=== PATIENT | male | born 1955 | race Hispanic/Latino ===

== ENCOUNTER 2017-09-02 08:59 | Emergency (ER) | payer MEDICARE ==
[2017-09-02 09:55] VITALS: BP 162/84
--- NOTE | 2017-09-02 10:15 | XRay Report ---
LEFT FOOT, 2 views: History: Pain, swelling, injury The bony architecture is intact. Bony alignment is normal. No soft tissue abnormalities are seen. The joint spaces appear preserved. IMPRESSION: Unremarkable left foot.
[2017-09-02] MEDS ORDERED: MOTRIN PO ONE (12:03)
--- NOTE | 2017-09-02 12:07 | Emergency Department Report ---
ED Lower Extremity HPI - General Chief Complaint: Extremity Injury, Lower Stated Complaint: LEFT FOOT PAIN Time Seen by Provider: 09/02/17 11:45 Source: patient Mode of arrival: Ambulatory Limitations: No Limitations - History of Present Illness Initial Comments: This is a 61-year-old male nontoxic, well nourished in appearance, no acute signs of distress presents to the ED with c/o of left foot pain x2 weeks. Patient stated he is unaware if he injured it but stated patient is aching with level of 8/10. Patient stated pain is intermittent. Patient stated he has been walking a lot. Patient denies any numbness, calf pain, calf tenderness, tingling, fever, chills, headache, nausea, vomiting, chest pain, shortness of breathe, decreased ROM, joint redness or joint swelling. Patient denies any drug allergies. PMH includes HTN. MD Complaint: foot injury -: Gradual, week(s) (2) Injury: Foot: Left Severity: mild Severity scale (0 -10): 8 Improves With: nothing Worsens With: nothing Associated Symptoms: able to partially bear weight, ambulatory. denies: snap/ pop sensation, swelling, numbness, tingling, unable to bear weight - Related Data Previous Rx's Medication Instructions Recorded Last Taken Type Aspirin EC [Aspirin Enteric Coated 81 mg PO QDAY #30 tablet 12/30/14 Unknown Rx TAB] Metoprolol [Lopressor TAB] 12.5 mg PO BID #60 tablet 12/30/14 Unknown Rx Minoxidil [Loniten] 2.5 mg PO BID #60 tablet 12/30/14 Unknown Rx NIFEdipine XL [Procardia Xl] 60 mg PO Q12HR #60 tablet 12/30/14 Unknown Rx Pantoprazole [Protonix TAB] 40 mg PO QDAY #30 tablet 12/30/14 Unknown Rx Sevelamer Carbonate [Renvela] 800 mg PO AC #90 tablet 12/30/14 Unknown Rx Amoxicillin/K Clav Tab [Augmentin 1 each PO DAILY #14 tablet 05/25/16 Unknown Rx 500 MG TAB] Ibuprofen [Motrin] 600 mg PO Q8H PRN #30 tablet 09/02/17 Unknown Rx predniSONE [Deltasone] 40 mg PO QDAY #5 tab 09/02/17 Unknown Rx Allergies Allergy/AdvReac Type Severity Reaction Status Date / Time adhesive Allergy Itching Verified 12/24/14 17:00 ED Review of Systems ROS: Stated complaint: LEFT FOOT PAIN Other details as noted in HPI Constitutional: denies: chills, fever Eyes: denies: eye pain, eye discharge, vision change ENT: denies: ear pain, throat pain Respiratory: denies: cough, shortness of breath, wheezing Cardiovascular: denies: chest pain, palpitations Endocrine: no symptoms reported Gastrointestinal: denies: abdominal pain, nausea, diarrhea Genitourinary: denies: urgency, dysuria Musculoskeletal: denies: back pain, joint swelling, arthralgia Skin: denies: rash, lesions Neurological: denies: headache, weakness, paresthesias Psychiatric: denies: anxiety, depression Hematological/Lymphatic: denies: easy bleeding, easy bruising ED Past Medical Hx - Past Medical History Hx Hypertension: Yes Hx Congestive Heart Failure: No Hx Diabetes: No Hx Renal Disease: Yes Hx Asthma: No Hx COPD: No Additional medical history: aorta clot - Surgical History Hx Pacemaker: No Additional Surgical History: fistula, aorta stent - Social History Smoking Status: Current Some Day Smoker Substance Use Type: None - Medications Home Medications: Home Medications Medication Instructions Recorded Confirmed Last Taken Type Aspirin EC [Aspirin Enteric Coated 81 mg PO QDAY #30 tablet 12/30/14 05/22/16 Unknown Rx TAB] Metoprolol [Lopressor TAB] 12.5 mg PO BID #60 tablet 12/30/14 05/22/16 Unknown Rx Minoxidil [Loniten] 2.5 mg PO BID #60 tablet 12/30/14 05/22/16 Unknown Rx NIFEdipine XL [Procardia Xl] 60 mg PO Q12HR #60 tablet 12/30/14 05/22/16 Unknown Rx Pantoprazole [Protonix TAB] 40 mg PO QDAY #30 tablet 12/30/14 05/22/16 Unknown Rx Sevelamer Carbonate [Renvela] 800 mg PO AC #90 tablet 12/30/14 05/22/16 Unknown Rx Amoxicillin/K Clav Tab [Augmentin 1 each PO DAILY #14 tablet 05/25/16 Unknown Rx 500 MG TAB] Ibuprofen [Motrin] 600 mg PO Q8H PRN #30 tablet 09/02/17 Unknown Rx predniSONE [Deltasone] 40 mg PO QDAY #5 tab 09/02/17 Unknown Rx ED Physical Exam - General Limitations: No Limitations General appearance: alert, in no apparent distress - Head Head exam: Present: atraumatic, normocephalic - Eye Eye exam: Present: normal appearance, PERRL, EOMI Pupils: Present: normal accommodation - ENT ENT exam: Present: normal exam, normal orophraynx, mucous membranes moist, TM's normal bilaterally, normal external ear exam - Neck Neck exam: Present: normal inspection, full ROM. Absent: tenderness, meningismus, lymphadenopathy, thyromegaly - Respiratory Respiratory exam: Present: normal lung sounds bilaterally. Absent: respiratory distress, wheezes, rales, rhonchi, stridor, chest wall tenderness, accessory muscle use, decreased breath sounds, prolonged expiratory - Cardiovascular Cardiovascular Exam: Present: regular rate, normal rhythm, normal heart sounds. Absent: bradycardia, tachycardia, irregular rhythm, systolic murmur, diastolic murmur, rubs, gallop - GI/Abdominal GI/Abdominal exam: Present: soft, normal bowel sounds. Absent: distended, tenderness, guarding, rebound, rigid, diminished bowel sounds - Rectal Rectal exam: Present: deferred - Extremities Exam Extremities exam: Present: normal inspection, full ROM, tenderness (posterior heel region), normal capillary refill. Absent: pedal edema, joint swelling, calf tenderness - Expanded Lower Extremity Exam Left Hip exam: Present: normal inspection, full ROM Upper Leg exam: Present: normal inspection, full ROM Knee exam: Present: normal inspection, full ROM Lower Leg exam: Present: normal inspection, full ROM. Absent: tenderness, swelling, abrasion, laceration, ecchymosis, deformity, crepidus, dislocation, erythema, palpable cord, Nikko's sign Ankle exam: Present: normal inspection, full ROM. Absent: tenderness, swelling , abrasion, laceration, ecchymosis, deformity, crepidus, dislocation, erythema, anterior draw sign Foot/Toe exam: Present: normal inspection, full ROM, tenderness, ecchymosis ( heel region). Absent: swelling, abrasion, laceration, deformity, crepidus, dislocation, erythema, amputation, puncture wound, foreign body, calcaneal tenderness, tenderness at base of 5th metatarsal, nail avulsion, subungual hematoma Neuro vascular tendon exam: Present: no vascular compromise. Absent: pulse deficit, abnormal cap refill, motor deficit, sensory deficit, tendon deficit, extremity cold to touch, pallor, abnormal 2-point discrimination, decreased fine /light touch, foot drop, peroneal nerve deficit, significant pain with passive ROM of distal joint Gait: Positive: observed and normal 1 - tenderness - Back Exam Back exam: Present: normal inspection, full ROM. Absent: tenderness, CVA tenderness (R), CVA tenderness (L), muscle spasm, paraspinal tenderness, vertebral tenderness, rash noted - Neurological Exam Neurological exam: Present: alert, oriented X3, CN II-XII intact, normal gait, reflexes normal - Psychiatric Psychiatric exam: Present: normal affect, normal mood - Skin Skin exam: Present: warm, dry, intact, normal color. Absent: rash ED Course Vital Signs 09/02/17 09:42 Temperature 97.8 F Pulse Rate 72 Respiratory 20 Rate Blood Pressure 162/84 O2 Sat by Pulse 98 Oximetry - Reevaluation(s) Reevaluation #1: 09/02/17 12:10 Patient is speaking in full sentences with no signs of distress noted. ED Lower Extremity MDM - Medical Decision Making This is a 61-year-old male that presents with plantar fasciitis. Patient is stable and was examined by me. X-ray of left foot has been obtained and dictated by radiologist but normal exam. Upon palpation there is tenderness to the plantar fasciitis region. No joint redness or joint swelling. No signs of any cellulitis noted. Not warm to touch. Patient received Motrin in the ED with persistent symptoms is improving and pain is subsiding. Patient received Solu-Medrol. Patient be discharged with prednisone and Motrin. Patient received orthopedic shoe. Patient was instructed Follow-up with a primary care doctor in 3-5 days or if symptoms worsen and continue return to emergency room as soon as possible. At time time of discharge, the patient does not seem toxic or ill in appearance. No acute signs of distress noted. Patient agrees to discharge treatment plan of care. No further questions noted by the patient. Critical care attestation.: If time is entered above; I have spent that time in minutes in the direct care of this critically ill patient, excluding procedure time. ED Disposition Clinical Impression: Plantar fasciitis Disposition: DC-01 TO HOME OR SELFCARE Is pt being admited?: No Does the pt Need Aspirin: No Condition: Stable Instructions: Plantar Fasciitis (ED), Prednisone (By mouth), Ibuprofen (By mouth) Additional Instructions: Follow-up with a primary care doctor/orthopedic doctor in 3-5 days or if symptoms worsen and continue return to emergency room as soon as possible. Prescriptions: Ibuprofen [Motrin] 600 mg PO Q8H PRN #30 tablet PRN Reason: Pain predniSONE [Deltasone] 40 mg PO QDAY #5 tab Referrals: PRIMARY CAREMD [Primary Care Provider] - 3-5 Days SERA MOTTA MD [Staff Physician] - 3-5 Days DUGLAS ALVAREZ MD [Staff Physician] - 3-5 Days [facility] [Outside] - 3-5 Days
== END 2017-09-02 12:50 | disposition home or self-care (01) ==
LOC: ED 08:59
DX: M72.2 Plantar fascial fibromatosis (principal); I10 Essential (primary) hypertension; Z88.8 Allergy status to other drugs, medicaments and biological substances
CPT/HCPCS: 73620; 96372; 99283; J2930

== ENCOUNTER 2019-01-19 15:36 | Inpatient (IN) | payer MEDICARE ==
[2019-01-19 16:30] LABS: Basophils % (Auto) 0.2 % (0.0-1.8); Eosinophils # (Auto) 0.2 K/mm3 (0.0-0.4); Eosinophils % (Auto) 1.6 % (0.0-4.3); Hematocrit 32.3 % (35.5-45.6); Hemoglobin 10.7 gm/dl (11.8-15.2); Lymphocytes # (Auto) 0.9 K/mm3 (1.2-5.4); Lymphocytes % (Auto) 7.9 % (13.4-35.0); Mean Corpuscular HGB Conc 33 % (32-34); Mean Corpuscular Volume 94 fl (84-94); Monocytes # (Auto) 0.8 K/mm3 (0.0-0.8); Platelet Count 202 K/mm3 (140-440); Red Blood Count 3.42 M/mm3 (3.65-5.03); Red Cell Distribution Width 16.1 % (13.2-15.2)
[2019-01-19] MEDS ORDERED: ATROVENT IH ONE (16:32)
[2019-01-19] MEDS ORDERED: PROVENTIL IH ONE (16:32)
--- NOTE | 2019-01-19 16:38 | Emergency Department Report ---
HPI - General Chief Complaint: Dyspnea/Respdistress Time Seen by Provider: 01/19/19 16:25 - HPI HPI: Room 21 The patient is a 63-year-old male presenting with a chief complaint shortness of breath. The patient has a history of end-stage renal disease and was last dialyzed 4 days ago 01/15/2019. She states she was unable to make it to dialysis yesterday because his car would not start. Patient states he developed shortness of breath last night as well as a cough that has been nonproductive. Patient denies history of fever or chest pain. Location: Lungs Duration: Since yesterday Quality: Shortness of Breath Severity: Moderate Modifying factors: [see above] Context: [see above] Mode of transportation: [not driving] ED Past Medical Hx - Past Medical History Previous Medical History?: Yes Hx Hypertension: Yes Hx Renal Disease: Yes Additional medical history: Dialysis M/W/F, aorta clot - Surgical History Past Surgical History?: Yes Additional Surgical History: fistula, aorta stent - Family History Family history: no significant - Social History Smoking Status: Current Some Day Smoker Substance Use Type: Marijuana - Medications Home Medications: Home Medications Medication Instructions Recorded Confirmed Last Taken Type Aspirin EC [Aspirin Enteric Coated 81 mg PO QDAY #30 tablet 12/30/14 05/22/16 Unknown Rx TAB] Metoprolol [Lopressor TAB] 12.5 mg PO BID #60 tablet 12/30/14 05/22/16 Unknown Rx Minoxidil [Loniten] 2.5 mg PO BID #60 tablet 12/30/14 05/22/16 Unknown Rx NIFEdipine XL [Procardia Xl] 60 mg PO Q12HR #60 tablet 12/30/14 05/22/16 Unknown Rx Pantoprazole [Protonix TAB] 40 mg PO QDAY #30 tablet 12/30/14 05/22/16 Unknown Rx Sevelamer Carbonate [Renvela] 800 mg PO AC #90 tablet 12/30/14 05/22/16 Unknown Rx Amoxicillin/K Clav Tab [Augmentin 1 each PO DAILY #14 tablet 05/25/16 Unknown Rx 500 MG TAB] Ibuprofen [Motrin] 600 mg PO Q8H PRN #30 tablet 09/02/17 Unknown Rx predniSONE [Deltasone] 40 mg PO QDAY #5 tab 09/02/17 Unknown Rx ED Review of Systems ROS: Stated complaint: SOB/NEEDS DIALYSIS Other details as noted in HPI Constitutional: denies: fever Eyes: denies: eye pain ENT: denies: throat pain Respiratory: cough, shortness of breath Cardiovascular: denies: chest pain Endocrine: no symptoms reported Gastrointestinal: denies: abdominal pain Genitourinary: denies: testicular pain Musculoskeletal: denies: back pain Neurological: denies: headache Physical Exam - Physical Exam Vital Signs: Vital Signs 01/19/19 01/19/19 15:50 15:51 Temperature 98.5 F Pulse Rate 92 H Respiratory 19 Rate Blood Pressure 186/96 Physical Exam: GENERAL: The patient is well-developed well-nourished male lying on stretcher appearing to be in mild discomfort. On the wheezing HEENT: Normocephalic. Atraumatic. Extraocular motions are intact. Patient has moist mucous membranes. NECK: Supple. Trachea midline CHEST/LUNGS: Diffuse wheezing. HEART/CARDIOVASCULAR: Regular. There is no tachycardia. There is no gallop rub or murmur. ABDOMEN: Abdomen is soft, nontender. Patient has normal bowel sounds. There is no abdominal distention. SKIN: There is no rash. There is no diaphoresis. NEURO: The patient is awake, alert, and oriented. The patient is cooperative. The patient has normal speech MUSCULOSKELETAL: There is no evidence of acute injury. ED Course Vital Signs 01/19/19 01/19/19 15:50 15:51 Temperature 98.5 F Pulse Rate 92 H Respiratory 19 Rate Blood Pressure 186/96 - Consultations Consultation #1: 01/19/19 16:35 Nephrology paged 01/19/19 16:[address] Montoya-will arrange for hemodialysis ED Medical Decision Making - Lab Data Result diagrams: 01/19/19 16:21 01/19/19 16:21 Laboratory Tests 01/19/19 01/19/19 16:21 16:21 WBC 11.0 RBC 3.42 L Hgb 10.7 L Hct 32.3 L MCV 94 MCH 31 MCHC 33 RDW 16.1 H Plt Count 202 Lymph % (Auto) 7.9 L [place] % (Auto) 7.0 Eos % (Auto) 1.6 Baso % (Auto) 0.2 Lymph # 0.9 L [place] # 0.8 Eos # 0.2 Baso # 0.0 Seg Neutrophils % 83.3 H Seg Neutrophils # 9.1 H Sodium 137 Potassium 6.0 H Chloride 96.4 L Carbon Dioxide 20 L Anion Gap 27 BUN 107 H Creatinine 14.3 H Estimated GFR 4 BUN/Creatinine Ratio 7 Glucose 108 H Calcium 9.9 Troponin T 0.056 H - EKG Data -: EKG Interpreted by Me EKG shows normal: sinus rhythm Rate: normal - EKG Data When compared to previous EKG there are: previous EKG unavailable Interpretation: nonspecific ST-T wave armando (T-wave inversion in lead aVL, V2) - Radiology Data Radiology results: image reviewed (chest x-ray) interpreted by me: Chest r-tac-suubhg overload. No pneumothorax - Differential Diagnosis volume overload, pneumonia, pneumothorax, reactive airway disease Critical care attestation.: If time is entered above; I have spent that time in minutes in the direct care of this critically ill patient, excluding procedure time. ED Disposition Clinical Impression: Shortness of breath, End-stage renal disease needing dialysis, Hyperkalemia Disposition: OP ADMIT IP TO THIS HOSP Is pt being admited?: Yes Does the pt Need Aspirin: Yes Condition: Fair Time of Disposition: 16:43 (hospitalist notified (Dr Dalal))
[2019-01-19 16:58] LABS: Calcium 9.9 mg/dL (8.4-10.2)
[2019-01-19 17:31] LABS: Chol/HDL Ratio 2.53 %
--- NOTE | 2019-01-19 17:34 | XRay Report ---
PROCEDURE: XR CHEST 1V AP TECHNIQUE: Chest radiograph , single frontal view. HISTORY: Chest Pain COMPARISONS: CXR 09/01/2018 . FINDINGS: Heart: Normal. Mediastinum/Vessels: There is increased prominence of both hilar regions and the pulmonary vasculatur e. Findings suggest vascular congestion and CHF. This should be followed to resolution.. Lungs/Pleural space: Focal infiltrate in the right lung base and left apex is seen which may be foca l pulmonary edema versus pneumonia. There is also likely fluid traversing the minor fissure on the ri ght.. Bony thorax: No acute osseous abnormality. Life support devices: None. IMPRESSION: Increased Pulmonary hilar vasculature prominence suggesting CHF. Patchy areas of infiltra te in the right lung base and left apex may be focal pulmonary edema versus pneumonia This document is electronically signed by Manasa Liang MD., Jan 19 2019 05:32:50 PM ET
[2019-01-19] MEDS ORDERED: NACL 0.9% 100 ML IV PRN ×2 (18:01→19:08)
[2019-01-19] MEDS ORDERED: CALCIUM GLUCONATE 1,000 MG in NACL 0.9% 100 ML IV ONE (18:29)
[2019-01-19 19:58] LABS: Hepatitis C Virus Antibody Reactive (NonReactive)
[2019-01-19] MEDS ORDERED: IBUPROFEN PO PRN (21:13)
[2019-01-19] MEDS ORDERED: LONITEN PO SCH (22:00)
[2019-01-19] MEDS: NORVASC PO SCH (23:11)
[2019-01-19] MEDS: HALFPRIN EC PO SCH (23:12)
[2019-01-19] MEDS: PROTONIX PO SCH (23:12)
[2019-01-19] MEDS: LOPRESSOR PO SCH (23:12)
[2019-01-19] MEDS: RENVELA PO SCH (23:26)
[2019-01-20] MEDS ORDERED: PROVENTIL IH PRN (03:04)
[2019-01-20] MEDS: APRESOLINE IV PRN ×2 (05:56→17:36)
--- NOTE | 2019-01-20 06:12 | Event Note ---
Date: 01/19/19 See H/p in reports Volume overload ESRD on HD Missed HD
--- NOTE | 2019-01-20 06:43 | History and Physical Report ---
CHIEF COMPLAINT: Increasing shortness of breath. HISTORY OF PRESENT ILLNESS: A 63-year-old male with history of end-stage renal disease, on hemodialysis, missed hemodialysis for 2 sessions. The patient's last dialysis was 01/15/2019. Unable to make to dialysis because this would not start. Shortness of breath since last night as well as cough, which is nonproductive. Shortness of breath on minimal exertion. Orthopnea present. PAST MEDICAL HISTORY: Significant for hypertension, end-stage renal disease, dialysis on Friday, Friday, and Friday; aortic clot. PAST SURGICAL HISTORY: AV fistula and aortic stent. FAMILY HISTORY: Hypertension. SOCIAL HISTORY: Smokes half a pack a day. CURRENT MEDICATIONS: Amlodipine 10 mg twice a day, metoprolol 12.5 twice a day. Also, Renvela 800 mg once a day, prednisone was used in 2017, not anymore. REVIEW OF SYSTEMS: Significant for increasing shortness of breath and orthopnea, missed hemodialysis. PHYSICAL EXAMINATION: GENERAL: Young elderly male, cooperative during examination. VITAL SIGNS: Blood pressure 186/96, temperature 98.5, pulse 92, respirations 19. HEENT: Unremarkable. Pupils equal and reactive. NECK: Supple, no lymphadenopathy, no thyromegaly. LUNGS: Clear to auscultation and percussion. Good air entry. CARDIOVASCULAR: S1, S2 heard. No gallop, no murmur, no rub. Apical impulse in left fifth intercostal space and midclavicular line. ABDOMEN: Soft and benign. No hepatosplenomegaly. No guarding, no rigidity. Hernial orifices are normal. EXTREMITIES: Good pedal pulses. No pedal edema. CENTRAL NERVOUS SYSTEM: Alert and oriented x 4, nonfocal exam. SKIN: Normal. LABORATORY DATA: White count 11,000, hemoglobin is 10.7, hematocrit is 32.3, platelet count is 202,000. Sodium is 137, potassium is 6.0, BUN and creatinine is 107 and 14.3. Troponin is 0.051, hepatitis is reactive. Chest x-ray shows increased pulmonary hilar vasculature prominence suggesting CHF, patchy areas of infiltrate in the right lung base and left apex may be focal pulmonary edema versus pneumonia. EKG, sinus tachycardia, heart rate of 100. ASSESSMENT AND PLAN: 1. Hypertensive emergency. The patient resumed on amlodipine 10 mg twice a day and minoxidil and metoprolol 12.5 twice a day. The patient is not on nifedipine as per the patient. Hence, it was kept on hold. Hydralazine IV given and hydralazine IV p.r.n. to be continued to control the blood pressure. 2. Congestive heart failure exacerbation secondary to diastolic failure and volume overload. Continue emergent hemodialysis.There is volume overload, continue emergent hemodialysis. 3. Gastroesophageal reflux disease. Continue Protonix. 4. Elevated troponin, nonspecific. 5. Hepatitis C positive. The patient referred to GI for outpatient treatment. 6. Deep venous thrombosis prophylaxis, heparin 5000 q. 12. JOB# [id number] RUDOLPH/AJAY BETH
[2019-01-20] MEDS ORDERED: RENVELA PO SCH (07:30)
[2019-01-20 07:31] LABS: Calcium 9.1 mg/dL (8.4-10.2)
[2019-01-20 08:10] LABS: Hepatitis B Surface Antigen Non-Reactive (Negative)
[2019-01-20] MEDS: LONITEN PO SCH ×2 (09:44→17:31)
[2019-01-20] MEDS: RENVELA PO SCH ×3 (09:44→17:31)
[2019-01-20] MEDS: PROTONIX PO SCH (09:45)
[2019-01-20] MEDS: NORVASC PO SCH (09:45)
[2019-01-20] MEDS: HALFPRIN EC PO SCH (09:45)
[2019-01-20] MEDS: LOPRESSOR PO SCH (09:46)
--- NOTE | 2019-01-20 10:29 | Gastroenterology Consultation ---
History of Present Illness - Reason for Consult Consult date: 01/20/19 hepatitis C positive Requesting physician: JAYRO FLORES - History of Present Illness Patient is a 63 y/o male with PMH of HTN and ESRD on HD who presented to ED with c/o SOB after missing dialysis and was admitted for volume overload and hyperkalemia. Upon admission, hepatitis C antibody was found to be positive to which GI has been consulted. This morning patient was resting in bed w/o acute distress. He is currently w/o GI complaints. Denies fever, CP, abd pain, N/V, jaundice, signs of bleeding, or LGI symptoms. Tolerating diet. No prior hx of liver disease or Fhx of liver disease. States that he thinks he was given "injections for hepatitis" when he started HD (possibly vaccines for hep A/B?). No alcohol use. He is a daily smoker and admits to marijuana use but denies IV drug use. No hx of blood transfusions. +for multiple tattoos. Patient is previously known to our service and is followed by Dr. Shearer with undergoing a screening colonoscopy in 2018 that revealed colon polyps with recommendations for a repeat colonoscopy in 6 months to which he did not follow up to have done. Past History Past Medical History: hypertension, renal failure (on HD) Past Surgical History: Other (fistula, aorta stent) Social history: smoking, other (Marijuana). denies: alcohol abuse Family history: hypertension Medications and Allergies Allergies Allergy/AdvReac Type Severity Reaction Status Date / Time adhesive Allergy Itching Verified 12/24/14 17:00 Home Medications Medication Instructions Recorded Confirmed Last Taken Type Aspirin EC [Aspirin Enteric Coated 81 mg PO QDAY #30 tablet 12/30/14 01/20/19 Unknown Rx TAB] Metoprolol [Lopressor TAB] 12.5 mg PO BID #60 tablet 12/30/14 01/20/19 Unknown Rx NIFEdipine XL [Procardia Xl] 60 mg PO Q12HR #60 tablet 12/30/14 01/20/19 Rx Pantoprazole [Protonix TAB] 40 mg PO QDAY #30 tablet 12/30/14 01/20/19 Unknown Rx Sevelamer Carbonate [Renvela] 800 mg PO AC #90 tablet 12/30/14 01/20/19 Unknown Rx Ibuprofen [Motrin] 600 mg PO Q8H PRN #30 tablet 09/02/17 01/20/19 09/21/18 Rx predniSONE [Deltasone] 40 mg PO QDAY #5 tab 09/02/17 01/20/19 08/17/18 Rx Active Meds: Active Medications Albuterol (Proventil) 2.5 mg IH Q4HRT PRN PRN Reason: Shortness Of Breath Last Admin: 01/20/19 03:15 Dose: 2.5 mg Documented by: Amlodipine Besylate (Norvasc) 10 mg PO QDAY [facility] Last Admin: 01/20/19 09:45 Dose: 10 mg Documented by: Aspirin (Halfprin Ec) 81 mg PO QDAY [facility] Last Admin: 01/20/19 09:45 Dose: 81 mg Documented by: Hydralazine HCl (Apresoline) 10 mg IV Q4H PRN PRN Reason: Blood Pressure Last Admin: 01/20/19 05:56 Dose: 10 mg Documented by: Sodium Chloride (Nacl 0.9%) 100 mls @ 999 mls/hr IV LADONNA PRN PRN Reason: Hypotension Sodium Chloride (Nacl 0.9%) 100 mls @ 999 mls/hr IV LADONNA PRN PRN Reason: Hypotension Ibuprofen (Motrin) 600 mg PO Q8H PRN PRN Reason: Pain Metoprolol Tartrate (Lopressor) 50 mg PO BID [facility] Last Admin: 01/20/19 09:46 Dose: 50 mg Documented by: Minoxidil (Loniten) 2.5 mg PO BID@0800,1700 [facility] Last Admin: 01/20/19 09:44 Dose: 2.5 mg Documented by: Pantoprazole Sodium (Protonix) 40 mg PO QDAY [facility] Last Admin: 01/20/19 09:45 Dose: 40 mg Documented by: Sevelamer Carbonate (Renvela) 800 mg PO [facility] Last Admin: 01/20/19 09:44 Dose: 800 mg Documented by: medications reviewed/updated as required Review of Systems - Review of Systems All systems: negative Gastrointestinal: no abdominal pain, no nausea, no vomiting, no jaundice Exam - Constitutional Vital Signs: Temp Pulse Resp BP Pulse Ox 98.4 F 84 18 184/99 96 01/20/19 08:05 01/20/19 09:46 01/20/19 08:05 01/20/19 09:46 01/20/19 08:05 General appearance: no acute distress - Respiratory Respiratory: bilateral: diminished - Cardiovascular Rhythm: regular - Gastrointestinal General gastrointestinal: Present: soft, non-tender, non-distended, normal bowel sounds - Neurologic Neurological: alert and oriented x3 - Labs CBC & Chem 7: 01/19/19 16:21 01/20/19 06:30 Lab Results: Laboratory Results - last 24 hr 01/19/19 01/19/19 01/19/19 16:21 16:21 19:03 WBC 11.0 RBC 3.42 L Hgb 10.7 L Hct 32.3 L MCV 94 MCH 31 MCHC 33 RDW 16.1 H Plt Count 202 Lymph % (Auto) 7.9 L Donley % (Auto) 7.0 Eos % (Auto) 1.6 Baso % (Auto) 0.2 Lymph # 0.9 L Donley # 0.8 Eos # 0.2 Baso # 0.0 Seg Neutrophils % 83.3 H Seg Neutrophils # 9.1 H Sodium 137 Potassium 6.0 H Chloride 96.4 L Carbon Dioxide 20 L Anion Gap 27 BUN 107 H Creatinine 14.3 H Estimated GFR 4 BUN/Creatinine Ratio 7 Glucose 108 H Calcium 9.9 Troponin T 0.056 H 0.051 H Triglycerides 67 Cholesterol 119 LDL Cholesterol Direct 66 HDL Cholesterol 47 Cholesterol/HDL Ratio 2.53 Hepatitis A IgM Ab Hep Bs Antigen Hep B Core IgM Ab Hepatitis C Antibody 01/19/19 01/20/19 01/20/19 19:03 00:37 06:30 WBC RBC Hgb Hct MCV MCH MCHC RDW Plt Count Lymph % (Auto) Donley % (Auto) Eos % (Auto) Baso % (Auto) Lymph # Donley # Eos # Baso # Seg Neutrophils % Seg Neutrophils # Sodium 138 Potassium 4.6 D Chloride 96.4 L Carbon Dioxide 26 Anion Gap 20 BUN 42 H Creatinine 8.3 H Estimated GFR 7 BUN/Creatinine Ratio 5 Glucose 104 H Calcium 9.1 Troponin T 0.071 H D Triglycerides Cholesterol LDL Cholesterol Direct HDL Cholesterol Cholesterol/HDL Ratio Hepatitis A IgM Ab Non-reactive Hep Bs Antigen Non-reactive Hep B Core IgM Ab Non-reactive Hepatitis C Antibody Reactive A Assessment and Plan 1.positive hepatitis C antibody -clinically, patient is w/o GI complaints. No abd pain, N/v, jaundice, or signs of bleeding. Tolerating diet -abdominal U/S for evaluation of liver -labs in am to include hepatic panel, INR, and hepatitis C VL and genotype -further treatment/management of HCV as outpatient 2.H/o colon polyps -last colonoscopy in 2017 revealed colon polyps with recommendations for repeat colonoscopy in 6 months -repeat colonoscopy as outpatient 3.ESRD on HD
[2019-01-20] MEDS ORDERED: NACL 0.9% 100 ML IV PRN (11:01)
--- NOTE | 2019-01-20 11:08 | Consultation ---
History of Present Illness - Reason for Consult Consult date: 01/20/19 end stage renal disease, hyperkalemia Requesting physician: SIAVN MARINO - History of Present Illness The patient is a 63-year-old male presenting with a chief complaint shortness of breath. The patient has a history of end-stage renal disease and was last dialyzed 4 days ago 01/15/2019. She states she was unable to make it to dialysis day before yesterday because his car would not start. Patient states he developed shortness of breath last night as well as a cough that has been nonproductive. Patient denies history of fever or chest pain. He was also noted to be hyperkalemic and volume overloaded. Urgent hemodialysis was done last night. His shortness of breath has improved significantly. However he still does complain of some orthopnea. Past History Past Medical History: COPD, dialysis, hypertension, renal failure (on HD) Past Surgical History: Other (fistula, aorta stent) Social history: smoking, other (Marijuana). denies: alcohol abuse Family history: hypertension Medications and Allergies Allergies Allergy/AdvReac Type Severity Reaction Status Date / Time adhesive Allergy Itching Verified 12/24/14 17:00 Home Medications Medication Instructions Recorded Confirmed Last Taken Type Aspirin EC [Aspirin Enteric Coated 81 mg PO QDAY #30 tablet 12/30/14 01/20/19 Unknown Rx TAB] Metoprolol [Lopressor TAB] 12.5 mg PO BID #60 tablet 12/30/14 01/20/19 Unknown Rx NIFEdipine XL [Procardia Xl] 60 mg PO Q12HR #60 tablet 12/30/14 01/20/19 08/17/18 Rx Pantoprazole [Protonix TAB] 40 mg PO QDAY #30 tablet 12/30/14 01/20/19 Unknown Rx Sevelamer Carbonate [Renvela] 800 mg PO AC #90 tablet 12/30/14 01/20/19 Unknown Rx Ibuprofen [Motrin] 600 mg PO Q8H PRN #30 tablet 09/02/17 01/20/19 09/21/18 Rx predniSONE [Deltasone] 40 mg PO QDAY #5 tab 09/02/17 01/20/19 08/17/18 Rx Active Meds: Active Medications Albuterol (Proventil) 2.5 mg IH Q4HRT PRN PRN Reason: Shortness Of Breath Last Admin: 01/20/19 03:15 Dose: 2.5 mg Documented by: Amlodipine Besylate (Norvasc) 10 mg PO QDAY [facility] Last Admin: 01/20/19 09:45 Dose: 10 mg Documented by: Aspirin (Halfprin Ec) 81 mg PO QDAY [facility] Last Admin: 01/20/19 09:45 Dose: 81 mg Documented by: Hydralazine HCl (Apresoline) 10 mg IV Q4H PRN PRN Reason: Blood Pressure Last Admin: 01/20/19 05:56 Dose: 10 mg Documented by: Sodium Chloride (Nacl 0.9%) 100 mls @ 999 mls/hr IV LADONNA PRN PRN Reason: Hypotension Sodium Chloride (Nacl 0.9%) 100 mls @ 999 mls/hr IV LADONNA PRN PRN Reason: Hypotension Sodium Chloride (Nacl 0.9%) 100 mls @ 999 mls/hr IV LADONNA PRN PRN Reason: Hypotension Ibuprofen (Motrin) 600 mg PO Q8H PRN PRN Reason: Pain Metoprolol Tartrate (Lopressor) 50 mg PO BID [facility] Last Admin: 01/20/19 09:46 Dose: 50 mg Documented by: Minoxidil (Loniten) 2.5 mg PO BID@0800,1700 [facility] Last Admin: 01/20/19 09:44 Dose: 2.5 mg Documented by: Pantoprazole Sodium (Protonix) 40 mg PO QDAY [facility] Last Admin: 01/20/19 09:45 Dose: 40 mg Documented by: Sevelamer Carbonate (Renvela) 800 mg PO [facility] Last Admin: 01/20/19 09:44 Dose: 800 mg Documented by: Review of Systems All systems: negative (negative except as noted above) Exam - Vital Signs Vital signs: Vital Signs Pulse Resp BP 92 H 19 186/96 01/19/19 15:50 01/19/19 15:50 01/19/19 15:50 - General Appearance General appearance: well-developed, well-nourished, appears stated age EENT: PERRL, mucous membranes moist Neck: Present: neck supple, trachea midline. Absent: JVD/HJR, Masses Respiratory: Rales (bibasilar crackles) Heart: regular, normal heart rate, S1S2, no murmurs Gastrointestinal: Present: normal, normoactive bowel sounds Integumentary: no rash, other (no edema. AV fistula in his left upper arm. Good bruit and thrill.) Results - Lab Results 01/19/19 16:21 01/20/19 06:30 Most recent lab results Calcium 9.1 mg/dL (8.4-10.2) 01/20/19 06:30 Assessment and Plan Impression * End-stage renal disease on maintenance hemodialysis * Hyperkalemia * Shortness of breath secondary to pulmonary edema plus minus COPD * Hypertension * Anemia secondary to ESRD * Noncompliance * Hepatitis C Recommendations * Patient had urgent hemodialysis last night for fluid removal and hyperkalemia * Shortness of breath is better. He however still has some orthopnea. Shall dialyze him again today and attempt more fluid removal * His outpatient dialysis days are also Mondays, Wednesdays and Fridays * His hyperkalemia has been corrected * Adjust diet and meds for ESRD state * No IV, BP of venipuncture his access arm * Binders with meals * Procrit with dialysis * Thank you very much for the consultation. Shall follow along with you
--- NOTE | 2019-01-20 11:57 | Progress Note ---
Hospitalist Physical - Constitutional Vitals: Temp Pulse Resp BP Pulse Ox 98.4 F 84 18 184/99 96 01/20/19 08:05 01/20/19 09:46 01/20/19 08:05 01/20/19 09:46 01/20/19 08:05 Results - Labs CBC & Chem 7: 01/19/19 16:21 01/20/19 06:30 Labs: Laboratory Last Values WBC 11.0 K/mm3 (4.5-11.0) 01/19/19 16:21 RBC 3.42 M/mm3 (3.65-5.03) L 01/19/19 16:21 Hgb 10.7 gm/dl (11.8-15.2) L 01/19/19 16:21 Hct 32.3 % (35.5-45.6) L 01/19/19 16:21 MCV 94 fl (84-94) 01/19/19 16:21 MCH 31 pg (28-32) 01/19/19 16:21 MCHC 33 % (32-34) 01/19/19 16:21 RDW 16.1 % (13.2-15.2) H 01/19/19 16:21 Plt Count 202 K/mm3 (140-440) 01/19/19 16:21 Lymph % (Auto) 7.9 % (13.4-35.0) L 01/19/19 16:21 Kay % (Auto) 7.0 % (0.0-7.3) 01/19/19 16:21 Eos % (Auto) 1.6 % (0.0-4.3) 01/19/19 16:21 Baso % (Auto) 0.2 % (0.0-1.8) 01/19/19 16:21 Lymph # 0.9 K/mm3 (1.2-5.4) L 01/19/19 16:21 Kay # 0.8 K/mm3 (0.0-0.8) 01/19/19 16:21 Eos # 0.2 K/mm3 (0.0-0.4) 01/19/19 16:21 Baso # 0.0 K/mm3 (0.0-0.1) 01/19/19 16:21 Seg Neutrophils % 83.3 % (40.0-70.0) H 01/19/19 16:21 Seg Neutrophils # 9.1 K/mm3 (1.8-7.7) H 01/19/19 16:21 Sodium 138 mmol/L (137-145) 01/20/19 06:30 Potassium 4.6 mmol/L (3.6-5.0) D 01/20/19 06:30 Chloride 96.4 mmol/L (98-107) L 01/20/19 06:30 Carbon Dioxide 26 mmol/L (22-30) 01/20/19 06:30 20 mmol/L 01/20/19 06:30 BUN 42 mg/dL (9-20) H 01/20/19 06:30 8.3 mg/dL (0.8-1.5) H 01/20/19 06:30 Estimated GFR 7 ml/min 01/20/19 06:30 5 % 01/20/19 06:30 Glucose 104 mg/dL (75-100) H 01/20/19 06:30 Calcium 9.1 mg/dL (8.4-10.2) 01/20/19 06:30 0.071 ng/mL (0.00-0.029) H D 01/20/19 00:37 Triglycerides 67 mg/dL (2-149) 01/19/19 16:21 Cholesterol 119 mg/dL (50-199) 01/19/19 16:21 66 mg/dL (50-130) 01/19/19 16:21 47 mg/dL (40-59) 01/19/19 16:21 2.53 % 01/19/19 16:21 Hepatitis A IgM Ab Non-reactive (NonReactive) 01/19/19 19:03 Hep Bs Antigen Non-reactive (Negative) 01/19/19 19:03 Hep B Core IgM Ab Non-reactive (NonReactive) 01/19/19 19:03 Reactive (NonReactive) A 01/19/19 19:03 Active Medications - Current Medications Current Medications: Generic Name Dose Route Start Last Admin Trade Name Freq PRN Reason Stop Dose Admin Albuterol 2.5 mg 01/20/19 03:04 01/20/19 03:15 Proventil IH 2.5 mg Q4HRT PRN Administration Shortness Of Breath Amlodipine Besylate 10 mg 01/19/19 22:00 01/20/19 09:45 Norvasc PO 10 mg QDAY LISA Administration Aspirin 81 mg 01/19/19 22:00 01/20/19 09:45 Halfprin Ec PO 81 mg QDAY LISA Administration Hydralazine HCl 10 mg 01/20/19 05:40 01/20/19 05:56 Apresoline IV 10 mg Q4H PRN Administration Blood Pressure Sodium Chloride 100 mls @ 999 mls/hr 01/20/19 11:01 Nacl 0.9% IV LADONNA PRN Hypotension Ibuprofen 600 mg 01/19/19 21:13 Motrin PO Q8H PRN Pain Metoprolol Tartrate 50 mg 01/19/19 22:00 01/20/19 09:46 Lopressor PO 50 mg BID LISA Administration Minoxidil 2.5 mg 01/20/19 08:00 01/20/19 09:44 Loniten PO 2.5 mg BID@0800,1700 LISA Administration Pantoprazole Sodium 40 mg 01/19/19 22:00 01/20/19 09:45 Protonix PO 40 mg QDAY LISA Administration Sevelamer Carbonate 800 mg 01/19/19 23:00 01/20/19 09:44 Renvela PO 800 mg AC LISA Administration
--- NOTE | 2019-01-20 17:13 | Discharge Summary ---
Providers - Providers Date of Admission: 01/19/19 17:56 Date of discharge: 01/20/19 Attending physician: SRIKANTH SOTO 01/19/19 18:04 Consult to Physician [CONS] Stat Comment: Consulting Provider: SHAHRZAD JULIO Physician Instructions: Reason For Exam: hyperkalemia, volume overload 01/20/19 06:18 Consult to Physician [CONS] Routine Comment: Consulting Provider: LUCIEN SEVILLA Physician Instructions: Reason For Exam: Hep c positive Hospitalization Condition: Fair Hospital course: Patient is 63 yo with hypertension, ESRD on dialysis. He presented with shortness of breath after missing 2 dialysis sessions. he was seen and evaluated in ED. Chest X ray was done in ED and revealed pulmonary edema. Labs show hyperkalemia. He was admitted, had urgent hemodialysis, arranged by [facility]. Labs also revealed hepatitis C and he was evaluated by GI Physician who recommended outpatient follow up. By following day dialysis repeated, he went back to baseline, and was discharged home. Disposition: TO HOME OR SELFCARE - Discharge Diagnoses (1) Acute respiratory failure Status: Acute (2) Acute pulmonary edema Status: Acute (3) Anemia in end-stage renal disease Status: Acute (4) Hepatitis C antibody test positive Status: Acute (5) ESRD on hemodialysis Status: Chronic (6) HTN (hypertension) Status: Chronic Qualifiers: Hypertension type: essential hypertension Qualified Code(s): I10 - Ess ential (primary) hypertension (7) Hyperkalemia Status: Acute Core Measure Documentation - Palliative Care Palliative Care/ Comfort Measures: Not Applicable - Core Measures Any of the following diagnoses?: none Exam - Constitutional Vitals: Temp Pulse Resp BP Pulse Ox 98.0 F 80 18 172/90 96 01/20/19 16:30 01/20/19 16:30 01/20/19 16:30 01/20/19 16:30 01/20/19 08:05 Plan Activity: no restrictions Diet: low fat, low cholesterol, low salt, renal Additional Instructions: 1.Follow up with PCP or [facility] in 1 week. 2. Follow up with BRANDON Khoury in 1 week. 3.Continue routine hemodialysis Follow up with: [facility] [Other] - 7 Days
[2019-01-20] MEDS ORDERED: NACL 0.9 (PRIMING MACHINE ONLY DIALYSIS) MC ONE (17:16)
[2019-01-20] MEDS ORDERED: CATAPRES PO ONE (18:50)
[2019-01-20 21:08] VITALS: BP 145/82
== END 2019-01-20 18:45 | disposition home or self-care (01) | DRG 291 ==
LOC: ED 15:36 → 4A 17:56
PROVIDERS: ADMIT Internal Medicine; ATTEND Internal Medicine
PROC: 5A1D70Z Performance of Urinary Filtration, Intermittent, Less than 6 Hours Per Day (ICD-10-PCS; principal; 2019-01-19)
PROC: 5A1D70Z Performance of Urinary Filtration, Intermittent, Less than 6 Hours Per Day (ICD-10-PCS; 2019-01-20)
DX: I13.2 Hypertensive heart and chronic kidney disease with heart failure and with stage 5 chronic kidney disease, or end stage renal disease (principal); N18.6 End stage renal disease; I50.31 Acute diastolic (congestive) heart failure; I16.1 Hypertensive emergency; E87.5 Hyperkalemia; B19.20 Unspecified viral hepatitis C without hepatic coma; F12.90 Cannabis use, unspecified, uncomplicated; D63.1 Anemia in chronic kidney disease; F17.210 Nicotine dependence, cigarettes, uncomplicated; Z71.6 Tobacco abuse counseling; Z79.82 Long term (current) use of aspirin; Z79.899 Other long term (current) drug therapy; Z91.15 Patient's noncompliance with renal dialysis; Z99.2 Dependence on renal dialysis; Z82.49 Family history of ischemic heart disease and other diseases of the circulatory system; Z95.828 Presence of other vascular implants and grafts
CPT/HCPCS: 36415; 71045; 80048; 80061; 80074; 84484; 85025; 93005; 93010; 94640; 99406; G0378; J0360; J0610; J7030

== ENCOUNTER 2019-06-17 12:02 | Emergency (ER) | payer MEDICARE ==
[2019-06-17 12:06] VITALS: BP 187/89
--- NOTE | 2019-06-17 12:23 | Emergency Department Report ---
ED Back Pain/Injury HPI - General Chief Complaint: Extremity Problem,Nontraumatic Stated Complaint: RT KNEE PAIN Time Seen by Provider: 06/17/19 12:19 Source: patient Limitations: No Limitations - History of Present Illness Initial Comments: 63 yo male comes to ER p missing a step today. He fell on r knee. He has had prior knee hardware. Pain with ambulation. 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 Pain 6-10 now Complaint: fall -: Sudden Similar Symptoms Previously: Yes Place: home Radiation: none Severity: mild Quality: dull Consistency: intermittent Improves With: immobilization Worsens With: movement Associated Symptoms: denies other symptoms - Related Data Previous Rx's Medication Instructions Recorded Last Taken Type Aspirin EC [Halfprin EC] 81 mg PO QDAY #30 tablet 12/30/14 Unknown Rx Metoprolol [Lopressor TAB] 12.5 mg PO BID #60 tablet 12/30/14 Unknown Rx NIFEdipine XL [Procardia Xl] 60 mg PO Q12HR #60 tablet 12/30/14 08/17/18 Rx Pantoprazole [Protonix TAB] 40 mg PO QDAY #30 tablet 12/30/14 Unknown Rx Sevelamer Carbonate [Renvela] 800 mg PO AC #90 tablet 12/30/14 Unknown Rx Ibuprofen [Motrin 600 MG tab] 600 mg PO Q8H PRN #30 tablet 09/02/17 09/21/18 Rx predniSONE [Deltasone] 40 mg PO QDAY #5 tab 09/02/17 08/17/18 Rx Allergies Allergy/AdvReac Type Severity Reaction Status Date / Time adhesive Allergy Itching Verified 06/17/19 12:08 ED Review of Systems ROS: Stated complaint: RT KNEE PAIN Other details as noted in HPI Comment: All other systems reviewed and negative ED Past Medical Hx - Past Medical History Medical history: ESRD, GERD, hypertension Dialysis M/W/F, aorta clot Surgical history: other Family history: no significant family history - Social History Alcohol use: rarely Drug use: none ED Back Pain Physical Exam - Exam General: Vital signs noted. No distress. Alert and acting appropriately. Back/Abdomen: No Abdominal Tenderness, No Perithoracic Tenderness, No Perilumbar Tenderness, No Sacroiliac Tenderness, No Flank Tenderness, No Straight Leg Raise Pain Neuro: Yes Normal Sensation, Yes Normal DTR's, Yes Normal Gait, No Motor Weakness ED Course Vital Signs 06/17/19 12:05 Temperature 98.0 F Pulse Rate 80 Respiratory 17 Rate Blood Pressure 187/89 [Right] O2 Sat by Pulse 96 Oximetry Ed Back Pain Tests - Tests Tests: Abnormal X Rays ED Medical Decision Making - Radiology Data Radiology results: report reviewed, image reviewed - Medical Decision Making knee effusion on xray immobilize/crutches medicated for pain dc home with dc plan of care and follow up Vital Signs 06/17/19 06/17/19 12:05 13:15 Temperature 98.0 F Pulse Rate 80 Respiratory 17 16 Rate Blood Pressure 187/89 [Right] O2 Sat by Pulse 96 Oximetry Critical care attestation.: If time is entered above; I have spent that time in minutes in the direct care of this critically ill patient, excluding procedure time. ED Disposition Clinical Impression: Knee pain, Fall, Knee effusion Disposition: DC-01 TO HOME OR SELFCARE Is pt being admited?: No Does the pt Need Aspirin: No Condition: Stable Instructions: Knee Effusion (ED) Additional Instructions: maynor for comfort crutches as tolerated otc motrin or tylenol for pain follow up with Dr Corrales- referral below Referrals: MARTINEZ TIERNEY MD [Primary Care Provider] - 3-5 Days DUGLAS CORRALES MD [Staff Physician] - 3-5 Days Time of Disposition: 13:08
[2019-06-17] MEDS ORDERED: KETOROLAC 60 MG/2 ML INJ IM ONE (13:07)
--- NOTE | 2019-06-17 13:17 | XRay Report ---
RIGHT KNEE 3 VIEW(S) INDICATION / CLINICAL INFORMATION: knee pain COMPARISON: None available. FINDINGS: BONES / JOINT(S): No acute fracture or subluxation. Intact hardware associated with previous ORIF of a tibial plateau fracture is in satisfactory alignment, and there is no evidence of loosening. Modera te osteoarthrosis, most severe in the lateral compartment. SOFT TISSUES: Small knee joint effusion is present. Atherosclerotic calcification of the popliteal ar simon is noted. ADDITIONAL FINDINGS: None. Signer Name: Jesse Duke MD Signed: 06/17/2019 1:12 PM Workstation Name: [id number]
== END 2019-06-17 13:42 | disposition home or self-care (01) ==
LOC: ED 12:02
DX: M25.461 Effusion, right knee (principal); K21.9 Gastro-esophageal reflux disease without esophagitis; I12.0 Hypertensive chronic kidney disease with stage 5 chronic kidney disease or end stage renal disease; N18.6 End stage renal disease; Z99.2 Dependence on renal dialysis; Z79.899 Other long term (current) drug therapy; Z79.82 Long term (current) use of aspirin; Z91.048 Other nonmedicinal substance allergy status; W10.9XXA Fall (on) (from) unspecified stairs and steps, initial encounter; Y93.89 Activity, other specified; Y92.89 Other specified places as the place of occurrence of the external cause; Y99.8 Other external cause status
CPT/HCPCS: 73562; 96372; 99283; J1885

== ENCOUNTER 2019-08-03 11:09 | Outpatient (CLI) | payer MEDICARE ==
[2019-08-03 11:26] LABS: Hemoglobin 6.5 gm/dl (11.8-15.2)
[2019-08-03 11:33] LABS: Hematocrit 19.5 % (35.5-45.6)
== END 2019-08-03 11:10 | disposition home or self-care (01) ==
LOC: LAB 11:09
PROVIDERS: ATTEND Nurse Practitioner Acute Care
DX: D63.1 Anemia in chronic kidney disease (principal)
CPT/HCPCS: 36415; 85014; 85018

== ENCOUNTER 2019-08-03 14:12 | Inpatient (IN) | payer MEDICARE ==
[2019-08-03] MEDS ORDERED: IBUPROFEN 600 MG TAB PO PRN (14:58)
[2019-08-03] MEDS ORDERED: VANCOMYCIN/NS 1 GM/250 ML 1 GM/250 ML BAG IV SCH (15:00)
[2019-08-03] MEDS ORDERED: SODIUM CHLORIDE 0.9% 500 ML 500 ML IV NR (15:00)
--- NOTE | 2019-08-03 15:05 | History and Physical Report ---
History of Present Illness Date of examination: 08/03/19 Date of admission: 08/03/19 14:27 Chief complaint: low Hb History of present illness: 63-year-old gentleman with medical history significant for MRSA bacteremia with endocarditis end stage renal disease on hemodialysis, sent from nephrology office as his Hb was noted to be 6.5. he denies any active bleeding. He was recently admitted to [facility] and dx with MRSA bateremia with endocarditis and he is currently getting vancomycin 1250 mg after hemodialysis with end date 08/20/2019. He denies any fevers chills. He was admitted for blood transfusion with obsevation status. Past medical History: h/o ESRD, HTN, MRSA bacteremia with endocarditis Past surgical History: s/p hernia repair, right leg surgery, neck disk surgery Social History: Lives with family, remote h/o smoking, denies drinking and elicit drug abuse. Family History: Significant for stroke and cancer Review of System: Constitutional: no fever, no chills, no weight loss Ears, eyes, nose, mouth and throat: no nasal congestion, no nasal discharge, no sinus pressure, no vision change, no red eye. Neck: No neck pain or rigidity. Cardiovascular: No chest pain, no orthopnea, no palpitations, no leg swelling Respiratory: + shortness of breath, no cough, no congestion, no wheezing Gastrointestinal: no abdominal pain, no nausea, no vomiting Genitourinary : no dysuria, no hematuria Musculoskeletal: no joint swelling or muscle ache Integumentary: no rash, no pruritis Neurological: no parathesias, no numbness, no tingling Endocrine: no cold or heat intolerance, no polyuria or polydipsia Hematologic/Lymphatic: no easy bruising, no easy bleeding, no gland swelling Allergic/Immunologic: no urticaria, no angioedema. Medications and Allergies Allergies Allergy/AdvReac Type Severity Reaction Status Date / Time adhesive Allergy Itching Verified 06/17/19 12:08 Home Medications Medication Instructions Recorded Confirmed Last Taken Type Aspirin EC [Halfprin EC] 81 mg PO QDAY #30 tablet 12/30/14 08/03/19 08/03/19 Rx 81 mg Metoprolol [Lopressor TAB] 12.5 mg PO BID #60 tablet 12/30/14 08/03/19 Unknown Rx NIFEdipine XL [Procardia Xl] 60 mg PO Q12HR #60 tablet 12/30/14 08/03/19 08/03/19 Rx 60 mg Pantoprazole [Protonix TAB] 40 mg PO QDAY #30 tablet 12/30/14 08/03/19 08/02/19 Rx 40 mg Sevelamer Carbonate [Renvela] 800 mg PO AC #90 tablet 12/30/14 08/03/19 08/03/19 Rx 1600 mg oxyCODONE /ACETAMINOPHEN [Percocet 1 tab PO Q6HR PRN 08/03/19 08/03/19 07/30/19 History 5/325] 1 tab Active Meds: Active Medications Aspirin (Halfprin Ec) 81 mg PO QDAY LISA Sodium Chloride (Nacl 0.9% 500 Ml) 500 mls @ 0 mls/hr IV ONCE NR Stop: 08/03/19 21:00 Ibuprofen (Ibuprofen) 600 mg PO Q8H PRN PRN Reason: PAIN Exam - Physical Exam Narrative exam: GENERAL: elderly WM lying on bed appeared to be in no discomfort. HEENT: Normocephalic. Atraumatic. No conjunctival congestion or icterus. Patient has moist mucous membranes. NECK: Supple. Trachea midline. CHEST/LUNGS: Clear to auscultated bilaterally, breathing nonlabored. No wheezes crackles or rhonchi. HEART/CARDIOVASCULAR: Regular in rate and rhythm. S1 and S2 positive. ABDOMEN: Abdomen is soft, nontender. Patient has normal bowel sounds. SKIN: There is no rash. Warm and dry. NEURO: No focal motor deficit. Follows command. MUSCULOSKELETAL: No joint effusion or tenderness. EXTRIMITY: No edema, no cyanosis or clubbing. PSYCH: Cooperative. Results - Labs CBC & Chem 7: 08/03/19 14:47 08/03/19 14:47 Assessment and Plan Symptomatic anemia with respiratory distress - monitor h/h, transfuse 1 unit PRBC with HD h/o endocarditis with MRSA on Vancomycin till 08/20 - cont vanco with HD ESRD on HD, nephrology consulted HTN, monitor BP, resume home meds DVT Px, SCD
[2019-08-03 15:31] LABS: Basophils # (Auto) 0.1 K/mm3 (0.0-0.1); Basophils % (Auto) 1.3 % (0.0-1.8); Eosinophils # (Auto) 0.3 K/mm3 (0.0-0.4); Eosinophils % (Auto) 4.2 % (0.0-4.3); Hemoglobin 6.7 gm/dl (11.8-15.2); Lymphocytes # (Auto) 0.9 K/mm3 (1.2-5.4); Lymphocytes % (Auto) 12.4 % (13.4-35.0); Mean Corpuscular HGB Conc 34 % (32-34); Mean Corpuscular Volume 99 fl (84-94); Monocytes # (Auto) 0.9 K/mm3 (0.0-0.8); Monocytes % (Auto) 11.7 % (0.0-7.3); Platelet Count 210 K/mm3 (140-440); Red Blood Count 2.01 M/mm3 (3.65-5.03); Red Cell Distribution Width 16.5 % (13.2-15.2)
[2019-08-03 15:45] LABS: Hematocrit 19.8 % (35.5-45.6)
[2019-08-03 15:49] LABS: Albumin 3.7 g/dL (3.9-5); Calcium 9.6 mg/dL (8.4-10.2)
[2019-08-03] MEDS ORDERED: VANCOMYCIN PHARMACY TO DOSE IV SCH (16:00)
[2019-08-03] MEDS ORDERED: VANCOMYCIN 1,250 MG in SODIUM CHLORIDE 0.9% 250ML 250 ML IV ONE (16:00)
[2019-08-03] MEDS: oxyCODONE /ACETAMINOPHEN 5-325MG TAB PO PRN ×2 (16:15→23:29)
[2019-08-03] MEDS: SEVELAMER CARBONATE 800 MG TAB PO SCH (16:16)
--- NOTE | 2019-08-03 17:31 | Consultation ---
History of Present Illness - History of Present Illness 63-year-old gentleman with medical history significant for MRSA bacteremia with endocarditis end stage renal disease on hemodialysis, to the hospital is because of significant anemia he denies any bleeding from any orifice he does have cough with some phlegm and it is currently getting vancomycin 1250 mg after hemodialysis with end date 08/20/2019. He denies any fevers chills. He is currently on oxygen he does report exertional shortness of breath Medications and Allergies Allergies Allergy/AdvReac Type Severity Reaction Status Date / Time adhesive Allergy Itching Verified 06/17/19 12:08 Home Medications Medication Instructions Recorded Confirmed Last Taken Type Aspirin EC [Halfprin EC] 81 mg PO QDAY #30 tablet 12/30/14 08/03/19 08/03/19 Rx 81 mg Metoprolol [Lopressor TAB] 12.5 mg PO BID #60 tablet 12/30/14 08/03/19 Unknown Rx NIFEdipine XL [Procardia Xl] 60 mg PO Q12HR #60 tablet 12/30/14 08/03/19 08/03/19 Rx 60 mg Pantoprazole [Protonix TAB] 40 mg PO QDAY #30 tablet 12/30/14 08/03/19 08/02/19 Rx 40 mg Sevelamer Carbonate [Renvela] 800 mg PO AC #90 tablet 12/30/14 08/03/19 08/03/19 Rx 1600 mg oxyCODONE /ACETAMINOPHEN [Percocet 1 tab PO Q6HR PRN 08/03/19 08/03/19 07/30/19 History 5/325] 1 tab Active Meds: Active Medications Aspirin (Halfprin Ec) 81 mg PO QDAY LISA Sodium Chloride (Nacl 0.9% 500 Ml) 500 mls @ 0 mls/hr IV ONCE NR Stop: 08/03/19 21:00 Vancomycin HCl 1,250 mg/ (Sodium Chloride) 275 mls @ 166.667 mls/hr IV ONCE ONE Stop: 08/03/19 17:38 Last Admin: 08/03/19 16:19 Dose: 166.667 mls/hr Documented by: Ibuprofen (Ibuprofen) 600 mg PO Q8H PRN PRN Reason: PAIN Metoprolol Tartrate (Metoprolol) 12.5 mg PO BID LISA Nifedipine (Procardia Xl) 60 mg PO Q12HR LISA Oxycodone/Acetaminophen (Percocet 5/325) 1 tab PO Q6HR PRN PRN Reason: PAIN Last Admin: 08/03/19 16:15 Dose: 1 tab Documented by: Pantoprazole Sodium (Protonix) 40 mg PO QDAY LISA Sevelamer Carbonate (Renvela) 800 mg PO AC LISA Last Admin: 08/03/19 16:16 Dose: 800 mg Documented by: Review of Systems Constitutional: weight gain, no fever, no chills Ears, nose, mouth and throat: no ear discharge, no tinnitis Cardiovascular: shortness of breath, dyspnea on exertion Respiratory: cough with sputum, no cough Gastrointestinal: no abdominal pain, no nausea, no vomiting Genitourinary Male: no dysuria, no hematuria Musculoskeletal: no neck stiffness, no neck pain Integumentary: no rash, no pruritis Neurological: no head injury Psychiatric: anxiety, no memory loss Endocrine: no cold intolerance, no heat intolerance Hematologic/Lymphatic: no easy bruising Exam - General Appearance General appearance: well-developed, well-nourished EENT: ATNC, PERRL, mucous membranes moist Neck: Present: neck supple Respiratory: Clear to Ascultation Heart: regular, S1S2 Gastrointestinal: Present: normoactive bowel sounds Integumentary: no rash Neurologic: alert and oriented x3, CN 3-12 intact Psychiatric: mood/affect appropriate Results - Lab Results 08/03/19 14:47 08/03/19 14:47 Most recent lab results Calcium 9.6 mg/dL (8.4-10.2) 08/03/19 14:47 Assessment and Plan - Patient Problems (1) ESRD on hemodialysis Current Visit: No Status: Chronic Plan to address problem: Will initiate dilaysis conitnue MWF (2) HTN (hypertension) Current Visit: No Status: Chronic Qualifiers: Hypertension type: essential hypertension Qualified Code(s): I10 - Essential (primary) hypertension Plan to address problem: HTN: controlled continue current medications. (3) Anemia in end-stage renal disease Current Visit: No Status: Acute Plan to address problem: Severe anemia Hb: 6.8g/dl monitor for bleeding. suggest red cell trasnfusion will add epogen [id number] (4) MRSA bacteremia Current Visit: Yes Status: Acute Plan to address problem: MRSA bacteremie with endocarditis on Vancomycin 1250mg with each dialysis treatment till 08/20/2019
[2019-08-03 21:28] LABS: Hepatitis B Surface Antigen Non-Reactive (Negative); Hepatitis C Virus Antibody Reactive (NonReactive)
[2019-08-03] MEDS: NIFEdipine XL 60 MG TAB PO SCH (21:44)
[2019-08-03] MEDS: METOPROLOL TARTRATE 25 MG TAB PO SCH (21:45)
[2019-08-03] MEDS ORDERED: EPOETIN ALFA 20,000 UNIT/1 ML INJ IV SCH (22:00)
[2019-08-03] MEDS ORDERED: PANTOPRAZOLE 40 MG INJ IV ONE (23:00)
[2019-08-04 01:13] LABS: Mean Corpuscular HGB Conc 33 % (32-34); Mean Corpuscular Volume 99 fl (84-94); Platelet Count 174 K/mm3 (140-440); Red Blood Count 1.62 M/mm3 (3.65-5.03); Red Cell Distribution Width 16.6 % (13.2-15.2)
[2019-08-04 01:52] LABS: Hemoglobin 5.3 gm/dl (11.8-15.2)
[2019-08-04 01:53] LABS: Hematocrit 16.1 % (35.5-45.6)
[2019-08-04] MEDS: SEVELAMER CARBONATE 800 MG TAB PO SCH ×3 (08:35→18:57)
[2019-08-04] MEDS: PANTOPRAZOLE 40 MG TAB PO SCH (12:38)
[2019-08-04] MEDS: oxyCODONE /ACETAMINOPHEN 5-325MG TAB PO PRN ×2 (12:50→22:52)
[2019-08-04] MEDS ORDERED: SODIUM CHLORIDE 0.9% 500 ML 500 ML IV NR (12:55)
[2019-08-04] MEDS: METOPROLOL TARTRATE 25 MG TAB PO SCH ×2 (13:02→21:50)
[2019-08-04] MEDS: ASPIRIN EC 81 MG TAB PO SCH (13:02)
[2019-08-04] MEDS: NIFEdipine XL 60 MG TAB PO SCH ×2 (13:03→21:50)
--- NOTE | 2019-08-04 13:39 | Progress Note ---
Assessment and Plan Assessment and plan: Acute on chronic Symptomatic anemia -Status post 1U of PRBC, patient scheduled to receive additional 2 units today -Will monitor H/H H/o endocarditis with MRSA on Vancomycin till 08/20 - cont IV vanco during HD ESRD on HD -nephrology following HTN -Controlled on meds DVT ppx: SCD Disposition: For discharge when medically stable History Interval history: Patient has no new complaints. He denies bleeding from any orifice. Hospitalist Physical - Constitutional Vitals: Temp Pulse Resp BP Pulse Ox 98.1 F 65 20 124/73 94 08/04/19 11:34 08/04/19 11:34 08/04/19 11:34 08/04/19 11:34 08/04/19 11:34 General appearance: Present: no acute distress - EENT Eyes: Present: PERRL, EOM intact ENT: hearing intact, clear oral mucosa - Neck Neck: Present: supple - Respiratory Respiratory effort: normal Respiratory: bilateral: CTA - Cardiovascular Rhythm: regular Heart Sounds: Present: S1 & S2 - Extremities Extremities: No edema - Abdominal General gastrointestinal: soft, non-tender, normal bowel sounds - Integumentary Integumentary: Present: dry, pale - Psychiatric Psychiatric: cooperative - Neurologic Neurologic: CNII-XII intact Results - Labs CBC & Chem 7: 08/04/19 00:48 08/03/19 14:47 Labs: Laboratory Last Values WBC 7.3 K/mm3 (4.5-11.0) 08/04/19 00:48 RBC 1.62 M/mm3 (3.65-5.03) L 08/04/19 00:48 Hgb 5.3 gm/dl (11.8-15.2) L* 08/04/19 00:48 Hct 16.1 % (35.5-45.6) L* 08/04/19 00:48 MCV 99 fl (84-94) H 08/04/19 00:48 MCH 33 pg (28-32) H 08/04/19 00:48 MCHC 33 % (32-34) 08/04/19 00:48 RDW 16.6 % (13.2-15.2) H 08/04/19 00:48 Plt Count 174 K/mm3 (140-440) 08/04/19 00:48 Lymph % (Auto) 12.4 % (13.4-35.0) L 08/03/19 14:47 [place] % (Auto) 11.7 % (0.0-7.3) H 08/03/19 14:47 Eos % (Auto) 4.2 % (0.0-4.3) 08/03/19 14:47 Baso % (Auto) 1.3 % (0.0-1.8) 08/03/19 14:47 Lymph # 0.9 K/mm3 (1.2-5.4) L 08/03/19 14:47 [place] # 0.9 K/mm3 (0.0-0.8) H 08/03/19 14:47 Eos # 0.3 K/mm3 (0.0-0.4) 08/03/19 14:47 Baso # 0.1 K/mm3 (0.0-0.1) 08/03/19 14:47 Seg Neutrophils % 70.4 % (40.0-70.0) H 08/03/19 14:47 Seg Neutrophils # 5.1 K/mm3 (1.8-7.7) 08/03/19 14:47 Sodium 136 mmol/L (137-145) L 08/03/19 14:47 Potassium 4.4 mmol/L (3.6-5.0) 08/03/19 14:47 Chloride 94.0 mmol/L (98-107) L 08/03/19 14:47 Carbon Dioxide 23 mmol/L (22-30) 08/03/19 14:47 Anion Gap 23 mmol/L 08/03/19 14:47 BUN 59 mg/dL (9-20) H 08/03/19 14:47 Creatinine 8.3 mg/dL (0.8-1.5) H 08/03/19 14:47 Estimated GFR 7 ml/min 08/03/19 14:47 BUN/Creatinine Ratio 7 % 08/03/19 14:47 Glucose 94 mg/dL (75-100) 08/03/19 14:47 Calcium 9.6 mg/dL (8.4-10.2) 08/03/19 14:47 Total Bilirubin 0.50 mg/dL (0.1-1.2) 08/03/19 14:47 AST 15 units/L (5-40) 08/03/19 14:47 ALT 10 units/L (7-56) 08/03/19 14:47 Alkaline Phosphatase 98 units/L (35-129) 08/03/19 14:47 Total Protein 7.4 g/dL (6.3-8.2) 08/03/19 14:47 Albumin 3.7 g/dL (3.9-5) L 08/03/19 14:47 Albumin/Globulin Ratio 1.0 % 08/03/19 14:47 Hepatitis A IgM Ab Non-reactive (NonReactive) 08/03/19 20:33 Hep Bs Antigen Non-reactive (Negative) 08/03/19 20:33 Hep B Core IgM Ab Non-reactive (NonReactive) 08/03/19 20:33 Hepatitis C Antibody Reactive (NonReactive) A 08/03/19 20:33 Blood Type O NEGATIVE 08/03/19 14:58 Antibody Screen Negative 08/03/19 14:58 Crossmatch See Detail 08/03/19 14:58 Active Medications - Current Medications Current Medications: Generic Name Dose Route Start Last Admin Trade Name Freq PRN Reason Stop Dose Admin Aspirin 81 mg 08/04/19 10:00 08/04/19 13:02 Halfprin Ec PO Not Given QDAY [facility] Epoetin Viet 20,000 unit 08/03/19 22:00 Procrit IV LADONNA LISA Vancomycin HCl 1,250 mg/ 275 mls @ 166.667 mls/hr 08/06/19 18:00 Sodium Chloride IV [id number] [facility] Sodium Chloride 500 mls @ 0 mls/hr 08/04/19 12:55 Nacl 0.9% 500 Ml IV 08/05/19 12:54 ONCE NR As Directed Ibuprofen 600 mg 08/03/19 14:58 Ibuprofen PO Q8H PRN PAIN Metoprolol Tartrate 12.5 mg 08/03/19 22:00 08/04/19 13:02 Metoprolol PO Not Given BID [facility] Nifedipine 60 mg 08/03/19 22:00 08/04/19 13:03 Procardia Xl PO Not Given Q12HR [facility] Oxycodone/Acetaminophen 1 tab 08/03/19 15:50 08/04/19 12:50 Percocet 5/325 PO 1 tab Q6HR PRN Administration PAIN Pantoprazole Sodium 40 mg 08/04/19 10:00 08/04/19 12:38 Protonix PO 40 mg QDAY LISA Administration Sevelamer Carbonate 1,600 mg 08/04/19 16:30 Renvela PO AC LISA Nutrition/Malnutrition Assess - Dietary Evaluation Nutrition/Malnutrition Findings: Nutrition Notes Start: 08/04/19 10:17 Freq: Status: Active Protocol: Document 08/04/19 10:17 JEF (Rec: 08/04/19 10:19 JEF [id number]) Co-Sign 08/04/19 10:17 LP Nutrition Notes Need for Assessment generated from: pmo analyst Initial or Follow up Brief Note Subjective/Other 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 Addison score was 21. No charted wounds. Nutrition Intervention Revisit per MD consult or patient Sign Off request:
--- NOTE | 2019-08-04 15:21 | Consultation ---
History of Present Illness - Reason for Consult Consult date: 08/04/19 MRSA bacteremia Requesting physician: ATTILA DURBIN - History of Present Illness The patient is a 63-year-old male with ESRD on hemodialysis, HTN, coronary artery disease, recent hospitalization at [facility] with MRSA bacteremia complicated by mitral valve endocarditis that was complicated further by ischemic/embolic CVA with hemorrhagic conversion and question of brain abscess. He was seen there by Dr. Rose from infectious diseases and treated with IV vancomycin. As per the outside records, cardiothoracic surgery was consulted and due to his recent embolic strokes and the risk of bleeding, the plan was for the patient to complete 6 weeks of IV vancomycin with hemodialysis and later to pursue mitral valve surgery. His bacteremia cleared on 07/10/2019. Vancomycin end date was 08/20/2019. He was now admitted to [facility] on 08/03/2019 due to low hemoglobin and need for possible blood transfusion. Infectious diseases was consulted for antibiotic recommendations. Denies any complaints. Remains afebrile. Currently getting dialysis. Review of Systems: General: no fevers,chills or rigors. reports feeling weak. HEENT: no new visual disturbance Respiratory: No cough, sputum, hemoptysis or shortness of breath Cardiovascular: No chest pain, syncope Gastrointestinal: No nausea, vomiting or diarrhea Genitourinary: No dysuria or hematuria Musculoskeletal: No new or worsening neck pain or back pain Neurologic: No headaches, seizures Hematologic: No easy bruising or bleeding Endocrine: No night sweats or acute weight loss Skin: negative for rash, jaundice Psychiatric: No suicidal or homicidal ideation Medications and Allergies Allergies Allergy/AdvReac Type Severity Reaction Status Date / Time adhesive Allergy Itching Verified 06/17/19 12:08 Home Medications Medication Instructions Recorded Confirmed Last Taken Type Aspirin EC [Halfprin EC] 81 mg PO QDAY #30 tablet 12/30/14 08/03/19 08/03/19 Rx 81 mg Metoprolol [Lopressor TAB] 12.5 mg PO BID #60 tablet 12/30/14 08/03/19 Unknown Rx NIFEdipine XL [Procardia Xl] 60 mg PO Q12HR #60 tablet 12/30/14 08/03/19 08/03/19 Rx 60 mg Pantoprazole [Protonix TAB] 40 mg PO QDAY #30 tablet 12/30/14 08/03/19 08/02/19 Rx 40 mg oxyCODONE /ACETAMINOPHEN [Percocet 1 tab PO Q6HR PRN 08/03/19 08/03/19 07/30/19 History 5/325] 1 tab Sevelamer Carbonate [Renvela] 1,600 mg PO AC 08/04/19 08/04/19 08/03/19 17:00 History Active Meds: Active Medications Aspirin (Halfprin Ec) 81 mg PO QDAY ON LICENSE OF [facility] Last Admin: 08/04/19 13:02 Dose: Not Given Documented by: Epoetin Viet (Procrit) 20,000 unit IV LADONNA ON LICENSE OF [facility] Vancomycin HCl 1,250 mg/ (Sodium Chloride) 275 mls @ 166.667 mls/hr IV [id number] ON LICENSE OF [facility] Sodium Chloride (Nacl 0.9% 500 Ml) 500 mls @ 0 mls/hr IV ONCE NR Stop: 08/05/19 12:54 Ibuprofen (Ibuprofen) 600 mg PO Q8H PRN PRN Reason: PAIN Metoprolol Tartrate (Metoprolol) 12.5 mg PO BID ON LICENSE OF [facility] Last Admin: 08/04/19 13:02 Dose: Not Given Documented by: Nifedipine (Procardia Xl) 60 mg PO Q12HR ON LICENSE OF [facility] Last Admin: 08/04/19 13:03 Dose: Not Given Documented by: Oxycodone/Acetaminophen (Percocet 5/325) 1 tab PO Q6HR PRN PRN Reason: PAIN Last Admin: 08/04/19 12:50 Dose: 1 tab Documented by: Pantoprazole Sodium (Protonix) 40 mg PO QDAY ON LICENSE OF [facility] Last Admin: 08/04/19 12:38 Dose: 40 mg Documented by: Sevelamer Carbonate (Renvela) 1,600 mg PO [facility] Physical Examination - Physical Exam Narrative exam: Physical Exam: Constitutional: Alert, cooperative. No acute distress Head, Ears, Nose: Normocephalic, atraumatic. External ears, nose normal Eyes: Conjunctivae/corneas clear. No icterus. No ptosis. Neck: Supple, no meningeal signs Cardiovascular: S1, S2 normal Respiratory: Good air entry, clear to auscultation bilaterally GI: Soft, non-tender; bowel sounds normal. No peritoneal signs Musculoskeletal: No pedal edema, no cyanosis. Skin: No rash or abscess Hem/Lymphatic: No palpable cervical or supraclavicular nodes. No lymphangitis Psych: Mood ok. Affect normal Neurological: Awake, alert, oriented. No gross abnormality - Constitutional Vitals: Vital Signs Temp Pulse Resp BP Pulse Ox 97.1 F L 65 20 147/74 94 08/04/19 14:56 08/04/19 15:00 08/04/19 14:56 08/04/19 15:00 08/04/19 11:34 Temperature -Last 24 Hours Temperature 97.1 F Temperature 97.0 F Temperature 97.0 F Temperature 97.3 F Temperature 97.5 F Temperature 98.1 F Temperature 97.4 F Temperature 97.4 F Temperature 98.0 F Results - Labs CBC & Chem 7: 08/04/19 00:48 08/03/19 14:47 Labs: Abnormal lab results 08/03/19 08/03/19 08/03/19 Range/Units 14:47 14:47 14:58 RBC 2.01 L (3.65-5.03) M/mm3 Hgb 6.7 L (11.8-15.2) gm/dl Hct 19.8 L* (35.5-45.6) % MCV 99 H (84-94) fl MCH 33 H (28-32) pg RDW 16.5 H (13.2-15.2) % Lymph % (Auto) 12.4 L (13.4-35.0) % [place] % (Auto) 11.7 H (0.0-7.3) % Lymph # 0.9 L (1.2-5.4) K/mm3 [place] # 0.9 H (0.0-0.8) K/mm3 Seg Neutrophils % 70.4 H (40.0-70.0) % Sodium 136 L (137-145) mmol/L Chloride 94.0 L (98-107) mmol/L BUN 59 H (9-20) mg/dL Creatinine 8.3 H (0.8-1.5) mg/dL Albumin 3.7 L (3.9-5) g/dL Hepatitis C Antibody (NonReactive) Crossmatch See Detail 08/03/19 08/04/19 Range/Units 20:33 00:48 RBC 1.62 L (3.65-5.03) M/mm3 Hgb 5.3 L* (11.8-15.2) gm/dl Hct 16.1 L* (35.5-45.6) % MCV 99 H (84-94) fl MCH 33 H (28-32) pg RDW 16.6 H (13.2-15.2) % Lymph % (Auto) (13.4-35.0) % [place] % (Auto) (0.0-7.3) % Lymph # (1.2-5.4) K/mm3 [place] # (0.0-0.8) K/mm3 Seg Neutrophils % (40.0-70.0) % Sodium (137-145) mmol/L Chloride (98-107) mmol/L BUN (9-20) mg/dL Creatinine (0.8-1.5) mg/dL Albumin (3.9-5) g/dL Hepatitis C Antibody Reactive A (NonReactive) Crossmatch Assessment and Plan Cultures: None here A/P: 63-year-old male with ESRD on hemodialysis, HTN, coronary artery disease, recent hospitalization at [facility] with MRSA bacteremia complicated by mitral valve endocarditis that was complicated further by ischemic/embolic CVA with hemorrhagic conversion and question of brain abscess. He was seen there by Dr. Rose from infectious diseases and treated with IV vancomycin. As per the outside records, cardiothoracic surgery was consulted and due to his recent embolic strokes and the risk of bleeding, the plan was for the patient to complete 6 weeks of IV vancomycin with hemodialysis and later to pursue mitral valve surgery. His bacteremia cleared on 07/10/2019. Vancomycin end date was 08/20/2019 #MRSA bacteremia with mitral valve endocarditis and embolic CVA +/- ?brain abscess: continue post HD IV Vancomycin x 6 weeks, target pre-dialysis levels: 15-20 mcg/ml, continue till 08/20/2019. Follow up with Dr. Rose and CT surgery as outpatient. #Symptomatic anemia: s/p transfusion #ESRD on HD: renally dose abx. Recs: continue post HD IV Vancomycin x 6 weeks, target pre-dialysis levels: 15-20 mcg/ml, continue till 08/20/[address] Rose and CT surgery as outpatient. Patient states he has appt at [facility] on 08/16/2019. CM orders placed for resuming IV vancomycin at dialysis if needed. Mikie Pizano MD, FACP [facility] C: [phone] O: [phone] F: [phone]
--- NOTE | 2019-08-04 16:32 | Progress Note ---
Assessment and Plan - Patient Problems (1) ESRD on hemodialysis Current Visit: No Status: Chronic Plan to address problem: End stage renal disease Will initiate dilaysis continue MWF (2) HTN (hypertension) Current Visit: No Status: Chronic Qualifiers: Hypertension type: essential hypertension Qualified Code(s): I10 - Esse ntial (primary) hypertension Plan to address problem: HTN: controlled continue current medications. (3) Anemia in end-stage renal disease Current Visit: No Status: Acute Plan to address problem: Severe anemia Hb: 5.3g/dl monitor for bleeding. Recommend additional red cell trasnfusion will add epogen [id number] (4) MRSA bacteremia Current Visit: Yes Status: Acute Plan to address problem: MRSA bacteremie with endocarditis on Vancomycin 1250mg with each dialysis treatment till 08/20/2019 Subjective Interval history: 63-year-old gentleman with medical history significant for MRSA bacteremia with endocarditis end stage renal disease on hemodialysis, to the hospital is because of significant anemia he denies any bleeding from any orifice he does have cough with some phlegm and it is currently getting vancomycin 1250 mg after hemodialysis with end date 08/20/2019. He denies any fevers chills. He is currently on oxygen he does report exertional shortness of breath I attest I saw the patietn on dialysis reports a headache denies any fevers or chills. Objective - Vital Signs Vital signs: Vital Signs - 12hr 08/04/19 08/04/19 08/04/19 05:05 05:17 11:34 Temperature 97.4 F L 97.4 F L 98.1 F Pulse Rate 65 65 Respiratory 20 20 20 Rate Blood Pressure 132/80 124/73 Blood Pressure 132/80 [Right] O2 Sat by Pulse 100 94 Oximetry 08/04/19 08/04/19 08/04/19 13:15 13:30 13:45 Temperature 97.5 F L Pulse Rate 70 64 65 Respiratory 20 Rate Blood Pressure 145/76 125/67 126/69 Blood Pressure [Right] O2 Sat by Pulse Oximetry 08/04/19 08/04/19 08/04/19 14:00 14:11 14:15 Temperature 97.5 F L Pulse Rate 68 68 68 Respiratory 20 Rate Blood Pressure 140/68 140/68 140/68 Blood Pressure [Right] O2 Sat by Pulse Oximetry 1108/04/19 08/04/19 14:26 14:30 14:40 Temperature 97.3 F L 97.0 F L Pulse Rate 65 65 62 Respiratory 20 20 Rate Blood Pressure 131/73 131/73 136/69 Blood Pressure [Right] O2 Sat by Pulse Oximetry 08/04/19 08/04/19 08/04/19 14:41 14:45 14:56 Temperature 97.0 F L 97.1 F L Pulse Rate 62 62 65 Respiratory 20 20 Rate Blood Pressure 136/69 136/69 147/74 Blood Pressure [Right] O2 Sat by Pulse Oximetry 08/04/19 08/04/19 08/04/19 15:00 15:15 15:30 Temperature 97.9 F Pulse Rate 65 62 68 Respiratory 20 Rate Blood Pressure 147/74 137/71 140/71 Blood Pressure [Right] O2 Sat by Pulse Oximetry 08/04/19 08/04/19 08/04/19 15:45 16:00 16:15 Temperature Pulse Rate 62 61 62 Respiratory Rate Blood Pressure 134/73 141/70 149/77 Blood Pressure [Right] O2 Sat by Pulse Oximetry - General Appearance General appearance: well-developed, well-nourished EENT: ATNC, PERRL, mucous membranes moist Neck: no JVD Respiratory: Present: Clear to Ascultation Cardiology: regular, S1S2 Gastrointestinal: normal, normoactive bowel sounds Integumentary: no rash Neurologic: alert and oriented x3, CN 3-12 intact Musculoskeletal: other (no edema. ) Psychiatric: mood/affect appropriate - Lab 08/04/19 00:48 08/03/19 14:47 Most recent lab results Calcium 9.6 mg/dL (8.4-10.2) 08/03/19 14:47 Medications & Allergies - Medications Allergies/Adverse Reactions: Allergies adhesive Allergy (Verified 06/17/19 12:08) Itching Home Medications: Home Medications Medication Instructions Recorded Confirmed Last Taken Type Aspirin EC [Halfprin EC] 81 mg PO QDAY #30 tablet 12/30/14 08/03/19 08/03/19 Rx 81 mg Metoprolol [Lopressor TAB] 12.5 mg PO BID #60 tablet 12/30/14 08/03/19 Unknown Rx NIFEdipine XL [Procardia Xl] 60 mg PO Q12HR #60 tablet 04/08/03/19 08/03/19 Rx 60 mg Pantoprazole [Protonix TAB] 40 mg PO QDAY #30 tablet 12/30/14 08/03/19 08/02/19 Rx 40 mg oxyCODONE /ACETAMINOPHEN [Percocet 1 tab PO Q6HR PRN 08/03/19 08/03/19 07/30/19 History 5/325] 1 tab Sevelamer Carbonate [Renvela] 1,600 mg PO AC 08/04/19 08/04/19 08/03/19 17:00 History Active Medications: Generic Name Dose Route Start Last Admin Trade Name Freq PRN Reason Stop Dose Admin Aspirin 81 mg 08/04/19 10:00 08/04/19 13:02 Halfprin Ec PO Not Given QDAY LISA Epoetin Viet 20,000 unit 08/03/19 22:00 Procrit IV LADONNA LISA Vancomycin HCl 1,250 mg/ 275 mls @ 166.667 mls/hr 08/06/19 18:00 Sodium Chloride IV [id number] [facility] Sodium Chloride 500 mls @ 0 mls/hr 08/04/19 12:55 Nacl 0.9% 500 Ml IV 08/05/19 12:54 ONCE NR As Directed Ibuprofen 600 mg 08/03/19 14:58 Ibuprofen PO Q8H PRN PAIN Metoprolol Tartrate 12.5 mg 08/03/19 22:00 08/04/19 13:02 Metoprolol PO Not Given BID LISA Nifedipine 60 mg 08/03/19 22:00 08/04/19 13:03 Procardia Xl PO Not Given Q12HR LISA Oxycodone/Acetaminophen 1 tab 08/03/19 15:50 08/04/19 12:50 Percocet 5/325 PO 1 tab Q6HR PRN Administration PAIN Pantoprazole Sodium 40 mg 08/04/19 10:00 08/04/19 12:38 Protonix PO 40 mg QDAY LISA Administration Sevelamer Carbonate 1,600 mg 08/04/19 16:30 Renvela PO AC [facility]
[2019-08-04] MEDS ORDERED: EPOETIN ALFA 20,000 UNIT/1 ML INJ ONE (17:24)
[2019-08-05] MEDS: SEVELAMER CARBONATE 800 MG TAB PO SCH ×3 (08:40→17:00)
--- NOTE | 2019-08-05 09:56 | Progress Note ---
Assessment and Plan Cultures: None here A/P: 63-year-old male with ESRD on hemodialysis, HTN, coronary artery disease, recent hospitalization at [facility] with MRSA bacteremia complicated by mitral valve endocarditis that was complicated further by ischemic/embolic CVA with hemorrhagic conversion and question of brain abscess. He was seen there by Dr. Rose from infectious diseases and treated with IV vancomycin. As per the outside records, cardiothoracic surgery was consulted and due to his recent embolic strokes and the risk of bleeding, the plan was for the patient to complete 6 weeks of IV vancomycin with hemodialysis and later to pursue mitral valve surgery. His bacteremia cleared on 07/10/2019. Vancomycin end date was 08/20/2019 #MRSA bacteremia with mitral valve endocarditis and embolic CVA +/- ?brain abscess: continue post HD IV Vancomycin x 6 weeks, target pre-dialysis levels: 15-20 mcg/ml, continue till 08/20/2019. Follow up with Dr. Rose and CT surgery as outpatient. #Symptomatic anemia: s/p transfusion #ESRD on HD: renally dose abx. Recs: continue post HD IV Vancomycin x 6 weeks, target pre-dialysis levels: 15-20 mcg/ml, continue till 08/20/[address] Rose and CT surgery as outpatient. Patient states he has appt at [facility] on 08/16/2019. CM orders already placed for resuming IV vancomycin at dialysis center when he is discharged Mikie Pizano MD, FACP [facility] ([facility]) C: [phone] O: [phone] F: [phone] Subjective Date of service: 08/05/19 Interval history: No fever. No new complaints. Got PRBC transfusions with dialysis yesterday. Thinks he may have had some blood in his urine last night. Objective - Exam Narrative Exam: Physical Exam: Constitutional: Alert, cooperative. No acute distress Head, Ears, Nose: Normocephalic, atraumatic. External ears, nose normal Eyes: Conjunctivae/corneas clear. No icterus. No ptosis. Neck: Supple, no meningeal signs Oral: poor dentition, no thrush Cardiovascular: S1, S2 normal Respiratory: Good air entry, clear to auscultation bilaterally GI: Soft, non-tender; bowel sounds normal. No peritoneal signs Musculoskeletal: No pedal edema, no cyanosis. HD cath + c/d/i Skin: No rash or abscess Hem/Lymphatic: No palpable cervical or supraclavicular nodes. No lymphangitis Psych: Mood ok. Affect normal Neurological: Awake, alert, oriented. No gross abnormality - Constitutional Vitals: Vital Signs Temp Pulse Resp BP Pulse Ox 98.7 F 78 20 151/80 95 08/05/19 05:30 08/05/19 05:30 08/05/19 05:30 08/05/19 05:30 08/05/19 05:30 Temperature -Last 24 Hours Temperature 98.7 F Temperature 99.0 F Temperature 97.9 F Temperature 97.9 F Temperature 97.9 F Temperature 97.1 F Temperature 97.0 F Temperature 97.0 F Temperature 97.3 F Temperature 97.5 F Temperature 97.5 F Temperature 98.1 F - Labs CBC & Chem 7: 08/04/19 00:48 08/03/19 14:47 Labs: Abnormal lab results 08/03/19 Range/Units 14:58 Crossmatch See Detail
[2019-08-05 10:04] LABS: Hematocrit 26.5 % (35.5-45.6); Mean Corpuscular HGB Conc 34 % (32-34); Mean Corpuscular Volume 94 fl (84-94); Platelet Count 199 K/mm3 (140-440); Red Blood Count 2.82 M/mm3 (3.65-5.03); Red Cell Distribution Width 18.6 % (13.2-15.2)
[2019-08-05 10:15] LABS: Calcium 9.4 mg/dL (8.4-10.2)
[2019-08-05] MEDS: METOPROLOL TARTRATE 25 MG TAB PO SCH ×2 (10:51→21:44)
[2019-08-05] MEDS: oxyCODONE /ACETAMINOPHEN 5-325MG TAB PO PRN ×2 (10:52→21:43)
[2019-08-05] MEDS: ASPIRIN EC 81 MG TAB PO SCH (10:52)
[2019-08-05] MEDS: PANTOPRAZOLE 40 MG TAB PO SCH (10:52)
[2019-08-05] MEDS: NIFEdipine XL 60 MG TAB PO SCH ×2 (10:52→21:44)
--- NOTE | 2019-08-05 14:05 | Progress Note ---
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 He reports that his weakness has improved Hospitalist Physical - Constitutional Vitals: Temp Pulse Resp BP Pulse Ox 98.7 F 76 20 143/82 95 08/05/19 05:30 08/05/19 10:51 08/05/19 05:30 08/05/19 10:51 08/05/19 05:30 General appearance: Present: no acute distress - EENT Eyes: Present: PERRL, EOM intact ENT: hearing intact, clear oral mucosa - Neck Neck: Present: supple - Respiratory Respiratory effort: normal Respiratory: bilateral: CTA - Cardiovascular Rhythm: regular Heart Sounds: Present: S1 & S2 - Extremities Extremities: No edema - Abdominal General gastrointestinal: soft, non-tender, normal bowel sounds - Psychiatric Psychiatric: cooperative - Neurologic Neurologic: moves all extremities Results - Labs CBC & Chem 7: 08/05/19 09:22 08/05/19 09:22 Labs: Laboratory Last Values WBC 7.5 K/mm3 (4.5-11.0) 08/05/19 09:22 RBC 2.82 M/mm3 (3.65-5.03) L 08/05/19 09:22 Hgb 9.0 gm/dl (11.8-15.2) L D 08/05/19 09:22 Hct 26.5 % (35.5-45.6) L D 08/05/19 09:22 MCV 94 fl (84-94) 08/05/19 09:22 MCH 32 pg (28-32) 08/05/19 09:22 MCHC 34 % (32-34) 08/05/19 09:22 RDW 18.6 % (13.2-15.2) H 08/05/19 09:22 Plt Count 199 K/mm3 (140-440) 08/05/19 09:22 Lymph % (Auto) 12.4 % (13.4-35.0) L 08/03/19 14:47 Warrick % (Auto) 11.7 % (0.0-7.3) H 08/03/19 14:47 Eos % (Auto) 4.2 % (0.0-4.3) 08/03/19 14:47 Baso % (Auto) 1.3 % (0.0-1.8) 08/03/19 14:47 Lymph # 0.9 K/mm3 (1.2-5.4) L 08/03/19 14:47 Warrick # 0.9 K/mm3 (0.0-0.8) H 08/03/19 14:47 Eos # 0.3 K/mm3 (0.0-0.4) 08/03/19 14:47 Baso # 0.1 K/mm3 (0.0-0.1) 08/03/19 14:47 Seg Neutrophils % 70.4 % (40.0-70.0) H 08/03/19 14:47 Seg Neutrophils # 5.1 K/mm3 (1.8-7.7) 08/03/19 14:47 Sodium 140 mmol/L (137-145) 08/05/19 09:22 Potassium 4.9 mmol/L (3.6-5.0) 08/05/19 09:22 Chloride 98.4 mmol/L (98-107) 08/05/19 09:22 Carbon Dioxide 23 mmol/L (22-30) 08/05/19 09:22 Anion Gap 24 mmol/L 08/05/19 09:22 BUN 38 mg/dL (9-20) H 08/05/19 09:22 Creatinine 6.2 mg/dL (0.8-1.5) H 08/05/19 09:22 Estimated GFR 9 ml/min 08/05/19 09:22 BUN/Creatinine Ratio 6 % 08/05/19 09:22 Glucose 110 mg/dL (75-100) H 08/05/19 09:22 Calcium 9.4 mg/dL (8.4-10.2) 08/05/19 09:22 Total Bilirubin 0.50 mg/dL (0.1-1.2) 08/03/19 14:47 AST 15 units/L (5-40) 08/03/19 14:47 ALT 10 units/L (7-56) 08/03/19 14:47 Alkaline Phosphatase 98 units/L (35-129) 08/03/19 14:47 Total Protein 7.4 g/dL (6.3-8.2) 08/03/19 14:47 Albumin 3.7 g/dL (3.9-5) L 08/03/19 14:47 Albumin/Globulin Ratio 1.0 % 08/03/19 14:47 Random Vancomycin 33.1 ug/mL (0-40.0) 08/05/19 04:44 Hepatitis A IgM Ab Non-reactive (NonReactive) 08/03/19 20:33 Hep Bs Antigen Non-reactive (Negative) 08/03/19 20:33 Hep B Core IgM Ab Non-reactive (NonReactive) 08/03/19 20:33 Hepatitis C Antibody Reactive (NonReactive) A 08/03/19 20:33 Blood Type O NEGATIVE 08/03/19 14:58 Antibody Screen Negative 08/03/19 14:58 Crossmatch See Detail 08/03/19 14:58 Active Medications - Current Medications Current Medications: Generic Name Dose Route Start Last Admin Trade Name Freq PRN Reason Stop Dose Admin Aspirin 81 mg 08/04/19 10:00 08/05/19 10:52 Halfprin Ec PO 81 mg QDAY LISA Administration Epoetin Viet 20,000 unit 08/03/19 22:00 Procrit IV LADONNA LISA Ibuprofen 600 mg 08/03/19 14:58 Ibuprofen PO Q8H PRN PAIN Metoprolol Tartrate 12.5 mg 08/03/19 22:00 08/05/19 10:51 Metoprolol PO 12.5 mg BID LISA Administration Nifedipine 60 mg 08/03/19 22:00 08/05/19 10:52 Procardia Xl PO 60 mg Q12HR LISA Administration Oxycodone/Acetaminophen 1 tab 08/03/19 15:50 08/05/19 10:52 Percocet 5/325 PO 1 tab Q6HR PRN Administration PAIN Pantoprazole Sodium 40 mg 08/04/19 10:00 08/05/19 10:52 Protonix PO 40 mg QDAY LISA Administration Sevelamer Carbonate 1,600 mg 08/04/19 16:30 08/05/19 13:15 Renvela PO 1,600 mg AC LISA Administration Nutrition/Malnutrition Assess - Dietary Evaluation Nutrition/Malnutrition Findings: Nutrition Notes Start: 08/04/19 10:17 Freq: Status: Active Protocol: Document 08/04/19 10:17 JEF (Rec: 08/04/19 10:19 JEF [id number]) Co-Sign 08/04/19 10:17 LP Nutrition Notes Need for Assessment generated from: pyrometallurgical engineer Initial or Follow up Brief Note Subjective/Other Information commercial lines underwriter for skin risk assessment. Addison score was 21. No charted wounds. Nutrition Intervention Revisit per MD consult or patient Sign Off request:
--- NOTE | 2019-08-05 14:44 | Progress Note ---
Assessment and Plan - Patient Problems (1) ESRD on hemodialysis Current Visit: Yes Status: Chronic Plan to address problem: End stage renal disease Will initiate dilaysis continue MWF (2) HTN (hypertension) Current Visit: No Status: Chronic Qualifiers: Hypertension type: essential hypertension Qualified Code(s): I10 - Ess ential (primary) hypertension Plan to address problem: HTN: controlled continue current medications. (3) Anemia in end-stage renal disease Current Visit: No Status: Acute Plan to address problem: Moderate anemia Hb: 9.0g/dl monitor for bleeding. Received red cell trasnfusion will add epogen [id number] (4) MRSA bacteremia Current Visit: Yes Status: Acute Plan to address problem: MRSA bacteremie with endocarditis on Vancomycin 1250mg with each dialysis treatment till 08/20/2019 Subjective Interval history: 63-year-old gentleman with medical history significant for MRSA bacteremia with endocarditis end stage renal disease on hemodialysis, to the hospital is because of significant anemia he denies any bleeding from any orifice he does have cough with some phlegm and it is currently getting vancomycin 1250 mg after hemodialysis with end date 08/20/2019. He denies any fevers chills. He is curre ntly on oxygen he does report exertional shortness of breath No orthopnea or PND, has some mild shortness of breath denies any fevers or chills. Objective - Vital Signs Vital signs: Vital Signs - 12hr 08/05/19 08/05/19 08/05/19 05:30 10:51 12:03 Temperature 98.7 F 98.5 F Pulse Rate 78 76 74 Respiratory 20 19 Rate Blood Pressure 151/80 143/82 154/77 O2 Sat by Pulse 95 95 Oximetry - General Appearance General appearance: well-developed, well-nourished EENT: ATNC, PERRL Neck: no JVD Respiratory: Present: Clear to Ascultation Cardiology: regular, S1S2 Gastrointestinal: normal, normoactive bowel sounds Integumentary: no rash Neurologic: alert and oriented x3 Psychiatric: mood/affect appropriate - Lab 08/05/19 09:22 08/05/19 09:22 Most recent lab results Calcium 9.4 mg/dL (8.4-10.2) 08/05/19 09:22 Medications & Allergies - Medications Allergies/Adverse Reactions: Allergies adhesive Allergy (Verified 06/17/19 12:08) Itching Home Medications: Home Medications Medication Instructions Recorded Confirmed Last Taken Type Aspirin EC [Halfprin EC] 81 mg PO QDAY #30 tablet 12/30/14 08/03/19 08/03/19 Rx 81 mg Metoprolol [Lopressor TAB] 12.5 mg PO BID #60 tablet 12/30/14 08/03/19 Unknown Rx NIFEdipine XL [Procardia Xl] 60 mg PO Q12HR #60 tablet 12/30/14 08/03/19 08/03/19 Rx 60 mg Pantoprazole [Protonix TAB] 40 mg PO QDAY #30 tablet 12/30/14 08/03/19 08/02/19 Rx 40 mg oxyCODONE /ACETAMINOPHEN [Percocet 1 tab PO Q6HR PRN 08/03/19 08/03/19 07/30/19 History 5/325] 1 tab Sevelamer Carbonate [Renvela] 1,600 mg PO AC 08/04/19 08/04/19 08/03/19 17:00 History Active Medications: Generic Name Dose Route Start Last Admin Trade Name Freq PRN Reason Stop Dose Admin Aspirin 81 mg 08/04/19 10:00 08/05/19 10:52 Halfprin Ec PO 81 mg QDAY LISA Administration Epoetin Viet 20,000 unit 08/03/19 22:00 Procrit IV LADONNA LISA Ibuprofen 600 mg 08/03/19 14:58 Ibuprofen PO Q8H PRN PAIN Metoprolol Tartrate 12.5 mg 08/03/19 22:00 08/05/19 10:51 Metoprolol PO 12.5 mg BID LISA Administration Nifedipine 60 mg 08/03/19 22:00 08/05/19 10:52 Procardia Xl PO 60 mg Q12HR LISA Administration Oxycodone/Acetaminophen 1 tab 08/03/19 15:50 08/05/19 10:52 Percocet 5/325 PO 1 tab Q6HR PRN Administration PAIN Pantoprazole Sodium 40 mg 08/04/19 10:00 08/05/19 10:52 Protonix PO 40 mg QDAY LISA Administration Sevelamer Carbonate 1,600 mg 08/04/19 16:30 08/05/19 13:15 Renvela PO 1,600 mg AC LISA Administration
[2019-08-06 09:25] LABS: Hemoglobin 8.9 gm/dl (11.8-15.2)
[2019-08-06] MEDS: SEVELAMER CARBONATE 800 MG TAB PO SCH ×3 (09:33→17:58)
--- NOTE | 2019-08-06 10:17 | Progress Note ---
Assessment and Plan Cultures: None here A/P: 63-year-old male with ESRD on hemodialysis, HTN, coronary artery disease, recent hospitalization at [facility] with MRSA bacteremia complicated by mitral valve endocarditis that was complicated further by ischemic/embolic CVA with hemorrhagic conversion and question of brain abscess. He was seen there by Dr. Rose from infectious diseases and treated with IV vancomycin. As per the outside records, cardiothoracic surgery was consulted and due to his recent embolic strokes and the risk of bleeding, the plan was for the patient to complete 6 weeks of IV vancomycin with hemodialysis and later to pursue mitral valve surgery. His bacteremia cleared on 07/10/2019. Vancomycin end date was 08/20/2019 #MRSA bacteremia with mitral valve endocarditis and embolic CVA +/- ?brain abscess: continue post HD IV Vancomycin x 6 weeks, target pre-dialysis levels: 15-20 mcg/ml, continue till 08/20/2019. Follow up with Dr. Rose and CT surgery as outpatient. #Symptomatic anemia: s/p transfusion #ESRD on HD: renally dose abx. Recs: continue post HD IV Vancomycin x 6 weeks, target pre-dialysis levels: 15-20 mcg/ml, continue till 08/20/[address] Rose and CT surgery as outpatient. Patient states he has appt at [facility] on 08/16/2019. CM orders already placed for resuming IV vancomycin at dialysis center when he is discharged Mikie Pizano MD, FACP [facility] C: [phone] O: [phone] F: [phone] Subjective Date of service: 08/06/19 Interval history: No fever. No new complaints. No bleeding. Feels improvement in energy levels. Awaiting dialysis. Objective - Exam Narrative Exam: Physical Exam: Constitutional: Alert, cooperative. No acute distress Head, Ears, Nose: Normocephalic, atraumatic. External ears, nose normal Eyes: Conjunctivae/corneas clear. No icterus. No ptosis. Neck: Supple, no meningeal signs Oral: poor dentition, no thrush Cardiovascular: S1, S2 normal Respiratory: Good air entry, clear to auscultation bilaterally GI: Soft, non-tender; bowel sounds normal. No peritoneal signs Musculoskeletal: No pedal edema, no cyanosis. HD cath + c/d/i Skin: No rash or abscess Hem/Lymphatic: No palpable cervical or supraclavicular nodes. No lymphangitis Psych: Mood ok. Affect normal Neurological: Awake, alert, oriented. No gross abnormality - Constitutional Vitals: Vital Signs Temp Pulse Resp BP Pulse Ox 98.5 F 78 19 149/71 94 08/06/19 05:12 08/06/19 05:12 08/06/19 05:12 08/06/19 05:12 08/06/19 05:12 Temperature -Last 24 Hours Temperature 98.5 F Temperature 97.2 F Temperature 98.5 F - Labs CBC & Chem 7: 08/06/19 08:27 08/05/19 09:22 Labs: Abnormal lab results 08/05/19 08/06/19 Range/Units 09:22 08:27 Hgb 9.0 L D 8.9 L (11.8-15.2) gm/dl Hct 26.5 L D 27.0 L (35.5-45.6) %
[2019-08-06] MEDS: NIFEdipine XL 60 MG TAB PO SCH ×2 (11:09→21:45)
[2019-08-06] MEDS: ASPIRIN EC 81 MG TAB PO SCH (11:10)
[2019-08-06] MEDS: METOPROLOL TARTRATE 25 MG TAB PO SCH ×2 (11:10→21:45)
[2019-08-06] MEDS: PANTOPRAZOLE 40 MG TAB PO SCH (11:17)
[2019-08-06] MEDS: oxyCODONE /ACETAMINOPHEN 5-325MG TAB PO PRN (11:19)
--- NOTE | 2019-08-06 12:35 | Discharge Summary ---
Providers - Providers Date of Admission: 08/04/19 09:14 Date of discharge: 08/06/19 Attending physician: MARBELLA TODD 08/03/19 14:59 Consult to Physician [CONS] Routine Comment: Consulting Provider: RIRI PEREZ Physician Instructions: Reason For Exam: MRSA bacteremia Consult to Physician [CONS] Routine Comment: Consulting Provider: CARMINA BELLO Physician Instructions: Reason For Exam: ESRD 08/04/19 15:20 Consult to Case Management [CONS] Routine Services Needed at Discharge: Other Notified:: cm Comment:: Resume existing orders from Dr. Rose for vancomycin at dialysis Additional Physician Instructions: Resume existing orders from Dr. Rose for vancomycin at dialysis. End date for IV Vancomycin post HD is 08/20/2019. 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 till 08/20 - continued IV vanco during HD per ID recommendation Chronic respiratory failure with hypoxia on home O2, 2L -Continued on 02 supplementation as needed ESRD on HD -Continued on hemodialysis HTN -Continued on home meds Generalized weakness, improved Disposition: DC-01 TO HOME OR SELFCARE Time spent for discharge: 35 minutes Core Measure Documentation - Palliative Care Palliative Care/ Comfort Measures: Not Applicable - Core Measures Any of the following diagnoses?: none Exam - Constitutional Vitals: Temp Pulse Resp BP Pulse Ox 98.5 F 77 19 136/76 94 08/06/19 05:12 08/06/19 11:10 08/06/19 05:12 08/06/19 11:10 08/06/19 05:12 General appearance: Present: no acute distress - EENT Eyes: Present: PERRL, EOM intact ENT: hearing intact, clear oral mucosa - Neck Neck: Present: supple, normal ROM - Respiratory Respiratory effort: normal Respiratory: bilateral: CTA - Cardiovascular Rhythm: regular Heart Sounds: Present: S1 & S2. Absent: rub, click - Extremities Extremities: No edema Peripheral Pulses: within normal limits - Abdominal General gastrointestinal: Present: soft, non-tender, non-distended, normal bowel sounds - Integumentary Integumentary: Present: clear, warm, dry - Musculoskeletal Musculoskeletal: gait normal, strength equal bilaterally - Psychiatric Psychiatric: cooperative - Neurologic Neurologic: CNII-XII intact, moves all extremities Plan Follow up with: PRIMARY CARE, [Primary Care Provider] - 7 Days
[2019-08-06] MEDS ORDERED: VANCOMYCIN 1,000 MG/20 ML IV ONE ×2 (14:30→20:00)
--- NOTE | 2019-08-06 16:35 | Progress Note ---
Assessment and Plan - Patient Problems (1) ESRD on hemodialysis Current Visit: Yes Status: Chronic Plan to address problem: End stage renal disease Will initiate dialysis continue MWF (2) HTN (hypertension) Current Visit: No Status: Chronic Qualifiers: Hypertension type: essential hypertension Qualified Code(s): I10 - Ess ential (primary) hypertension Plan to address problem: HTN: controlled continue current medications. (3) Anemia in end-stage renal disease Current Visit: No Status: Acute Plan to address problem: Moderate anemia Hb: 8.9g/dl monitor for bleeding. Received red cell trasnfusion will add epogen [id number] (4) MRSA bacteremia Current Visit: Yes Status: Acute Plan to address problem: MRSA bacteremia with endocarditis on Vancomycin 1250mg with each dialysis treatment till 08/20/2019 Subjective Interval history: 63-year-old gentleman with medical history significant for MRSA bacteremia with endocarditis end stage renal disease on hemodialysis, to the hospital is because of significant anemia he denies any bleeding from any orifice he does have cough with some phlegm and it is currently getting vancomycin 1250 mg after hemodialysis with end date 08/20/2019. He denies any fevers chills. He is curre ntly on oxygen he does report exertional shortness of breath No orthopnea or PND, has some mild shortness of breath denies any fevers or chills. I attest I saw the patient on dialysis Objective - Vital Signs Vital signs: Vital Signs - 12hr 08/06/19 08/06/19 08/06/19 05:12 11:10 13:01 Temperature 98.5 F Pulse Rate 78 77 Respiratory 19 20 Rate Blood Pressure 149/71 136/76 O2 Sat by Pulse 94 94 Oximetry 08/06/19 08/06/19 08/06/19 13:30 13:38 13:45 Temperature 98.5 F Pulse Rate 71 75 70 Respiratory 20 Rate Blood Pressure 145/79 150/82 167/86 O2 Sat by Pulse Oximetry 08/06/19 08/06/19 08/06/19 14:00 14:15 14:45 Temperature Pulse Rate 72 72 69 Respiratory Rate Blood Pressure 155/80 158/80 151/79 O2 Sat by Pulse Oximetry 08/06/19 08/06/19 08/06/19 14:46 15:00 15:30 Temperature Pulse Rate 68 67 63 Respiratory Rate Blood Pressure 142/78 148/77 149/74 O2 Sat by Pulse Oximetry 08/06/19 15:45 Temperature Pulse Rate 67 Respiratory Rate Blood Pressure 140/78 O2 Sat by Pulse Oximetry - General Appearance General appearance: well-developed, well-nourished EENT: ATNC, PERRL Neck: no JVD Respiratory: Present: Decreased Breath Sounds Cardiology: regular, S1S2 Gastrointestinal: normal, normoactive bowel sounds Integumentary: no rash Neurologic: alert and oriented x3, CN 3-12 intact Psychiatric: mood/affect appropriate - Lab 08/06/19 08:27 08/05/19 09:22 Most recent lab results Calcium 9.4 mg/dL (8.4-10.2) 08/05/19 09:22 Phosphorus 3.90 mg/dL (2.5-4.5) 08/06/19 08:34 Medications & Allergies - Medications Allergies/Adverse Reactions: Allergies adhesive Allergy (Verified 06/17/19 12:08) Itching Home Medications: Home Medications Medication Instructions Recorded Confirmed Last Taken Type Aspirin EC [Halfprin EC] 81 mg PO QDAY #30 tablet 12/30/14 08/03/19 08/03/19 Rx 81 mg Metoprolol [Lopressor TAB] 12.5 mg PO BID #60 tablet 12/30/14 08/03/19 Unknown Rx NIFEdipine XL [Procardia Xl] 60 mg PO Q12HR #60 tablet 12/30/14 08/03/19 08/03/19 Rx 60 mg Pantoprazole [Protonix TAB] 40 mg PO QDAY #30 tablet 12/30/14 08/03/19 08/02/19 Rx 40 mg oxyCODONE /ACETAMINOPHEN [Percocet 1 tab PO Q6HR PRN 08/03/19 08/03/19 07/30/19 History 5/325 mg] 1 tab Sevelamer Carbonate [Renvela] 1,600 mg PO AC 08/04/19 08/04/19 08/03/19 17:00 History Active Medications: Generic Name Dose Route Start Last Admin Trade Name Freq PRN Reason Stop Dose Admin Aspirin 81 mg 08/04/19 10:00 08/06/19 11:10 Halfprin Ec PO 81 mg QDAY LISA Administration Epoetin Viet 20,000 unit 08/03/19 22:00 Procrit IV LADONNA LISA Ibuprofen 600 mg 08/03/19 14:58 Ibuprofen PO Q8H PRN PAIN Metoprolol Tartrate 12.5 mg 08/03/19 22:00 08/06/19 11:10 Metoprolol PO 12.5 mg BID LISA Administration Nifedipine 60 mg 08/03/19 22:00 08/06/19 11:09 Procardia Xl PO 60 mg Q12HR LISA Administration Oxycodone/Acetaminophen 1 tab 08/03/19 15:50 08/06/19 11:19 Percocet 5/325 PO 1 tab Q6HR PRN Administration PAIN Pantoprazole Sodium 40 mg 08/04/19 10:00 08/06/19 11:17 Protonix PO 40 mg QDAY LISA Administration Sevelamer Carbonate 1,600 mg 08/04/19 16:30 08/06/19 11:09 Renvela PO 1,600 mg AC LISA Administration
[2019-08-06] MEDS ORDERED: VANCOMYCIN 1,250 MG in SODIUM CHLORIDE 0.9% 250ML 250 ML IV SCH (18:00)
[2019-08-06] MEDS ORDERED: VANCOMYCIN 1,250 MG in SODIUM CHLORIDE 0.9% 250ML 250 ML IV ONE (20:15)
[2019-08-06 21:16] VITALS: BP 170/92
== END 2019-08-06 22:35 | disposition home health service (06) | DRG 682 ==
LOC: 3A 14:12 → UNDOADMIN 14:12 → PREINTOOBSV 14:22 → 3A 14:27 → OBSVTOIN 08-04 09:14
PROVIDERS: ADMIT Internal Medicine; ATTEND Internal Medicine
PROC: 5A1D70Z Performance of Urinary Filtration, Intermittent, Less than 6 Hours Per Day (ICD-10-PCS; principal; 2019-08-04)
PROC: 30233N1 Transfusion of Nonautologous Red Blood Cells into Peripheral Vein, Percutaneous Approach (ICD-10-PCS; 2019-08-04)
PROC: 5A1D70Z Performance of Urinary Filtration, Intermittent, Less than 6 Hours Per Day (ICD-10-PCS; 2019-08-06)
DX: I12.0 Hypertensive chronic kidney disease with stage 5 chronic kidney disease or end stage renal disease (principal); N18.6 End stage renal disease; J96.10 Chronic respiratory failure, unspecified whether with hypoxia or hypercapnia; I38 Endocarditis, valve unspecified; D63.1 Anemia in chronic kidney disease; I25.10 Atherosclerotic heart disease of native coronary artery without angina pectoris; Z99.2 Dependence on renal dialysis; Z22.322 Carrier or suspected carrier of Methicillin resistant Staphylococcus aureus; Z79.82 Long term (current) use of aspirin; Z79.899 Other long term (current) drug therapy; Z82.3 Family history of stroke; Z80.9 Family history of malignant neoplasm, unspecified; Z86.73 Personal history of transient ischemic attack (TIA), and cerebral infarction without residual deficits
CPT/HCPCS: 36415; 36430; 71045; 80048; 80053; 80074; 80202; 84100; 85014; 85018; 85025; 85027; 86850; 86900; 86901; 86920; 93005; 94640; 94644; 96365; 96375; G0378; C9113; G0379; J0885; J2930; J3370; J3475; J7040; J7050; P9016

== ENCOUNTER 2020-06-11 19:24 | Emergency (ER) | payer MEDICARE ==
[2020-06-11] MEDS ORDERED: HYDROcodone/ACETAMINOPHEN 5-325 MG TAB PO ONE (21:07)
--- NOTE | 2020-06-11 21:08 | Emergency Department Report ---
ED General Adult HPI - General Chief complaint: Burn/Smoke Inhalation Stated complaint: RT HAND/WRIST BURN Time Seen by Provider: 06/11/20 21:05 Source: patient Mode of arrival: Ambulatory Limitations: No Limitations - Related Data Home Medications Medication Instructions Recorded Confirmed Last Taken oxyCODONE /ACETAMINOPHEN [Percocet 1 tab PO Q6HR PRN 08/03/19 08/03/19 07/30/19 5/325 mg] 1 tab Sevelamer Carbonate [Renvela] 1,600 mg PO AC 08/04/19 08/04/19 08/03/19 17:00 Previous Rx's Medication Instructions Recorded Last Taken Type Aspirin EC [Halfprin EC] 81 mg PO QDAY #30 tablet 12/30/14 08/03/19 Rx 81 mg Metoprolol [Lopressor TAB] 12.5 mg PO BID #60 tablet 12/30/14 Unknown Rx NIFEdipine XL [Procardia Xl] 60 mg PO Q12HR #60 tablet 12/30/14 08/03/19 Rx 60 mg Pantoprazole [Protonix TAB] 40 mg PO QDAY #30 tablet 12/30/14 08/02/19 Rx 40 mg Allergies Allergy/AdvReac Type Severity Reaction Status Date / Time adhesive Allergy Itching Verified 06/17/19 12:08 ED Review of Systems ROS: Stated complaint: RT HAND/WRIST BURN Other details as noted in HPI ED Past Medical Hx - Past Medical History Previous Medical History?: Yes Hx Hypertension: Yes Hx Congestive Heart Failure: Yes Hx Diabetes: No Hx Renal Disease: Yes (dialysis MWF) Hx Asthma: Yes (as child) Hx COPD: No Additional medical history: Dialysis M/W/F, aorta clot. PUD - Surgical History Past Surgical History?: Yes Hx Open Heart Surgery: Yes Hx Pacemaker: No Additional Surgical History: fistula, aorta stent. Mitral valve replacement. neck - Social History Smoking Status: Never Smoker Substance Use Type: Marijuana - Medications Home Medications: Home Medications Medication Instructions Recorded Confirmed Last Taken Type Aspirin EC [Halfprin EC] 81 mg PO QDAY #30 tablet 12/30/14 08/03/19 08/03/19 Rx 81 mg Metoprolol [Lopressor TAB] 12.5 mg PO BID #60 tablet 12/30/14 08/03/19 Unknown Rx NIFEdipine XL [Procardia Xl] 60 mg PO Q12HR #60 tablet 12/30/14 08/03/19 08/03/19 Rx 60 mg Pantoprazole [Protonix TAB] 40 mg PO QDAY #30 tablet 12/30/14 08/03/19 08/02/19 Rx 40 mg oxyCODONE /ACETAMINOPHEN [Percocet 1 tab PO Q6HR PRN 08/03/19 08/03/19 07/30/19 History 5/325 mg] 1 tab Sevelamer Carbonate [Renvela] 1,600 mg PO AC 08/04/19 08/04/19 08/03/19 17:00 History ED Physical Exam - General Limitations: No Limitations ED Course Vital Signs 06/11/20 19:29 Temperature 97.8 F Pulse Rate 81 Respiratory 14 Rate Blood Pressure 164/81 O2 Sat by Pulse 98 Oximetry Critical care attestation.: If time is entered above; I have spent that time in minutes in the direct care of this critically ill patient, excluding procedure time. ED Disposition Condition: Stable Referrals: PRIMARY CARE, [Primary Care Provider] - 3-5 Days
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
[2020-06-11 21:27] VITALS: BP 177/93
[2020-06-11 21:41] LABS: Basophils # (Auto) 0.1 K/mm3 (0.0-0.1); Basophils % (Auto) 0.9 % (0.0-1.8); Eosinophils # (Auto) 0.5 K/mm3 (0.0-0.4); Hematocrit 34.5 % (35.5-45.6); Hemoglobin 11.3 gm/dl (11.8-15.2); Lymphocytes # (Auto) 1.3 K/mm3 (1.2-5.4); Lymphocytes % (Auto) 12.4 % (13.4-35.0); Mean Corpuscular HGB Conc 33 % (32-34); Mean Corpuscular Volume 99 fl (84-94); Monocytes % (Auto) 9.3 % (0.0-7.3); Platelet Count 183 K/mm3 (140-440); Red Cell Distribution Width 14.8 % (13.2-15.2)
--- NOTE | 2020-06-11 22:16 | XRay Report ---
RIGHT WRIST 3 VIEWS 2106 INDICATION: wound, pain, swelling, redness COMPARISON: None available. FINDINGS: Old fractures of the distal radius and ulna are noted. No acute fractures or dislocations a re noted. Arthritic changes are seen at the first carpal metacarpal joint and the radiocarpal joint. No obvious bony erosions are seen. No foreign bodies are noted. Arterial calcifications are moderatel y prominent. Signer Name: Jeffrey Pizarro MD Signed: 06/11/2020 10:11 PM Workstation Name: [id number]
== END 2020-06-11 23:00 | disposition home or self-care (01) ==
LOC: ED 19:24
DX: T23.271A Burn of second degree of right wrist, initial encounter (principal); I50.9 Heart failure, unspecified; I11.0 Hypertensive heart disease with heart failure; J45.909 Unspecified asthma, uncomplicated; F12.10 Cannabis abuse, uncomplicated; Z98.890 Other specified postprocedural states; Z79.899 Other long term (current) drug therapy; Z88.8 Allergy status to other drugs, medicaments and biological substances; X08.8XXA Exposure to other specified smoke, fire and flames, initial encounter; Y93.89 Activity, other specified; Y92.89 Other specified places as the place of occurrence of the external cause; Y99.8 Other external cause status
CPT/HCPCS: 36415; 80048; 85025

== ENCOUNTER 2021-01-20 18:31 | Observation (INO) | payer MEDICARE ==
--- NOTE | 2021-01-20 19:02 | Event Note ---
ED Screening Note Date of service: 01/20/21 Time: 19:01 ED Screening Note: 65-year-old male presents to the emergency room complaining of shortness of breath that started this afternoon. Patient has a history of end- stage renal disease and is currently on dialysis Friday. Patient states he has not missed any of his dialysis. Patient reports he has a history of a CABG. Up-to-date on his Covid vaccine. This initial assessment/diagnostic orders/clinical plan/treatment(s) is/are subject to change based on patients health status, clinical progression and re- assessment by fellow clinical providers in the ED. Further treatment and workup at subsequent clinical providers discretion. Patient/guardian urged not to elope from the ED as their condition may be serious if not clinically assessed and managed. Initial orders include:
--- NOTE | 2021-01-20 19:22 | XRay Report ---
CHEST 2 VIEWS INDICATION / CLINICAL INFORMATION: Shortness of breath. COMPARISON: 01/19/2019 FINDINGS: SUPPORT DEVICES: None. HEART / MEDIASTINUM: Previous median sternotomy and mitral valve replacement. LUNGS / PLEURA: Mild bilateral interstitial edema. ADDITIONAL FINDINGS: No significant additional findings. IMPRESSION: 1. Mild bilateral interstitial pulmonary edema. Signer Name: Abdulkadir Moore MD Signed: 01/20/2021 7:18 PM Workstation Name: [id number]
[2021-01-20] MEDS ORDERED: IPRATROPIUM 0.02% NEBU 2.5 ML IH ONE (20:00)
[2021-01-20] MEDS ORDERED: ALBUTEROL 2.5 MG/3 ML NEBU IH ONE ×2 (20:00→21:43)
[2021-01-20] MEDS ORDERED: methylPREDNISolone Sod Succinate 125 MG/2 ML INJ IV ONE (20:00)
[2021-01-20] MEDS ORDERED: ONDANSETRON 4 MG/2 ML INJ IV ONE (20:01)
--- NOTE | 2021-01-20 20:05 | Emergency Department Report ---
ED Shortness of Breath HPI - General Chief Complaint: Dyspnea/Respdistress Stated Complaint: CHRISTIAN Time Seen by Provider: 01/20/21 19:54 Source: patient Mode of arrival: Ambulatory Limitations: No Limitations - History of Present Illness Initial Comments: Patient is 65 years old male with history of end-stage renal disease on hemodialysis. Patient stated that he did not miss his dialysis on Friday. Patient also history of asthma , congestive heart failure and CABG. Patient presented to the ER complaining of shortness of breath and chest congestion sin ce lunchtime today. Patient stated that he has some chills but no fever. Patient denied any chest pain. Patient stated that he is nauseated but no vomiting. Patient stated that he received his 2 doses of COVID-19 vaccine the last 1 was 1 week ago. MD Complaint: shortness of breath -: This afternoon Severity: moderate Known History Of: COPD, congestive heart failure - Related Data Home Medications Medication Instructions Recorded Confirmed Last Taken oxyCODONE /ACETAMINOPHEN [Percocet 1 tab PO Q6HR PRN 08/03/19 08/03/19 07/30/19 5/325 mg] 1 tab Sevelamer Carbonate [Renvela] 1,600 mg PO AC 08/04/19 08/04/19 08/03/19 17:00 Previous Rx's Medication Instructions Recorded Last Taken Type Aspirin EC [Halfprin EC] 81 mg PO QDAY #30 tablet 12/30/14 08/03/19 Rx 81 mg Metoprolol [Lopressor TAB] 12.5 mg PO BID #60 tablet 12/30/14 Unknown Rx NIFEdipine XL [Procardia Xl] 60 mg PO Q12HR #60 tablet 12/30/14 08/03/19 Rx 60 mg Pantoprazole [Protonix TAB] 40 mg PO QDAY #30 tablet 12/30/14 08/02/19 Rx 40 mg Doxycycline Monohydrate 100 mg PO BID 10 Days #20 capsule 06/11/20 Unknown Rx [Doxycycline Monohydrate CAP] Mupirocin [Bactroban 2% OINT] 1 applic TP TID 10 Days #1 tube 06/11/20 Unknown Rx Silver Sulfadiazine [Silvadene] 1 gm TP BID 5 Days #1 cream..g. 06/11/20 Unknown Rx traMADoL [Ultram 50 MG tab] 50 mg PO Q6HR PRN #10 tablet 06/11/20 Unknown Rx Allergies Allergy/AdvReac Type Severity Reaction Status Date / Time adhesive Allergy Itching Verified 06/17/19 12:08 ED Review of Systems ROS: Stated complaint: CHRISTIAN Other details as noted in HPI Comment: All other systems reviewed and negative Constitutional: chills. denies: fever Respiratory: cough, shortness of breath, SOB with exertion, SOB at rest, wheezing. denies: orthopnea Cardiovascular: denies: chest pain, palpitations Gastrointestinal: denies: abdominal pain, nausea, vomiting Musculoskeletal: denies: back pain Neurological: denies: headache, weakness, numbness, paresthesias, confusion ED Past Medical Hx - Past Medical History Previous Medical History?: Yes Hx Hypertension: Yes Hx Congestive Heart Failure: Yes Hx Diabetes: No Hx Renal Disease: Yes (dialysis MWF) Hx Asthma: Yes (as child) Hx COPD: No Additional medical history: Dialysis M/W/F, aorta clot. PUD - Surgical History Past Surgical History?: Yes Hx Open Heart Surgery: Yes Hx Pacemaker: No Additional Surgical History: fistula, aorta stent. Mitral valve replacement. neck - Social History Smoking Status: Former Smoker Substance Use Type: Alcohol, Prescribed - Medications Home Medications: Home Medications Medication Instructions Recorded Confirmed Last Taken Type Aspirin EC [Halfprin EC] 81 mg PO QDAY #30 tablet 12/30/14 08/03/19 08/03/19 Rx 81 mg Metoprolol [Lopressor TAB] 12.5 mg PO BID #60 tablet 12/30/14 08/03/19 Unknown Rx NIFEdipine XL [Procardia Xl] 60 mg PO Q12HR #60 tablet 12/30/14 08/03/19 Rx 60 mg Pantoprazole [Protonix TAB] 40 mg PO QDAY #30 tablet 12/30/14 08/03/19 08/02/19 Rx 40 mg oxyCODONE /ACETAMINOPHEN [Percocet 1 tab PO Q6HR PRN 08/03/19 08/03/19 07/30/19 History 5/325 mg] 1 tab Sevelamer Carbonate [Renvela] 1,600 mg PO AC 08/04/19 08/04/19 08/03/19 17:00 History Doxycycline Monohydrate 100 mg PO BID 10 Days #20 capsule 06/11/20 Unknown Rx [Doxycycline Monohydrate CAP] Mupirocin [Bactroban 2% OINT] 1 applic TP TID 10 Days #1 tube 06/11/20 Unknown Rx Silver Sulfadiazine [Silvadene] 1 gm TP BID 5 Days #1 cream..g. 06/11/20 Unkno wn Rx traMADoL [Ultram 50 MG tab] 50 mg PO Q6HR PRN #10 tablet 06/11/20 Unknown Rx ED Physical Exam - General Limitations: No Limitations General appearance: alert, in distress - Head Head exam: Present: atraumatic, normocephalic, normal inspection - Eye Eye exam: Present: normal appearance - ENT ENT exam: Present: normal exam, normal orophraynx, mucous membranes moist - Neck Neck exam: Present: normal inspection, full ROM. Absent: tenderness, meningismus - Respiratory Respiratory exam: Present: respiratory distress, wheezes, rales, rhonchi, decreased breath sounds, prolonged expiratory. Absent: stridor, accessory muscle use - Cardiovascular Cardiovascular Exam: Present: regular rate, normal rhythm, normal heart sounds - GI/Abdominal GI/Abdominal exam: Present: soft, normal bowel sounds. Absent: distended, tenderness, guarding, rebound, rigid, pulsatile mass, hernia - Back Exam Back exam: Present: normal inspection, full ROM. Absent: CVA tenderness (R), CVA tenderness (L) - Neurological Exam Neurological exam: Present: alert, oriented X3, CN II-XII intact - Psychiatric Psychiatric exam: Present: normal mood - Skin Skin exam: Present: warm, intact ED Course Vital Signs 01/20/21 01/20/21 01/20/21 18:36 19:56 20:36 Temperature 99.7 F H 98.9 F Pulse Rate 88 81 Pulse Rate [ 80 Bilateral Throughout] Respiratory 15 26 H Rate Respiratory 18 Rate [Bilateral Throughout] Blood Pressure 190/83 Blood Pressure 134/88 [Right] O2 Sat by Pulse 92 94 Oximetry ED Medical Decision Making - Lab Data Result diagrams: 01/20/21 19:17 01/20/21 19:17 - EKG Data -: EKG Interpreted by Me EKG shows normal: sinus rhythm Rate: normal - EKG Data Interpretation: no acute changes - Radiology Data Radiology results: report reviewed - Medical Decision Making Patient is 65 years old male with history of end-stage renal disease on hemodialysis. Patient stated that he did not miss his dialysis on Friday. Patient also history of asthma , congestive heart failure and CABG. Patient presented to the ER complaining of shortness of breath and chest congestion since lunchtime today. Patient stated that he has some chills but no fever. Patient denied any chest pain. Patient stated that he is nauseated but no vomiting. Patient stated that he received his 2 doses of COVID-19 vaccine the last 1 was 1 week ago. EKG is unremarkable. Chest x-ray showed pulmonary edema. Patient chest exam showed diffuse wheezing. Patient received albuterol, Atrovent and Solu-Medrol with some improvement. Labs reviewed and is unremarkable. I discussed the patient with , he agreed to admit the patient to medical service for further management. Critical care attestation.: If time is entered above; I have spent that time in minutes in the direct care of this critically ill patient, excluding procedure time. ED Disposition Clinical Impression: ESRD on hemodialysis, Shortness of breath, Asthma exacerbation, Elevated troponin Disposition: OP ADMIT IP TO THIS HOSP Is pt being admited?: Yes Condition: Stable Referrals: SHIRLEY COOK MD [Primary Care Provider] - 3-5 Days
[2021-01-20 20:12] LABS: Hematocrit 29.5 % (35.5-45.6); Hemoglobin 9.5 gm/dl (11.8-15.2); Mean Corpuscular HGB Conc 32 % (32-34); Mean Corpuscular Volume 95 fl (84-94); Platelet Count 163 K/mm3 (140-440); Red Cell Distribution Width 18.9 % (13.2-15.2)
[2021-01-20 20:33] LABS: Calcium 9.7 mg/dL (8.4-10.2)
[2021-01-20 21:00] LABS: INR 1.33 (0.87-1.13)
[2021-01-20 21:01] LABS: Partial Thromboplastin Time 34.4 Sec. (24.2-36.6)
[2021-01-20 21:03] LABS: Albumin 4.5 g/dL (3.9-5); Bilirubin,Direct 0.5 mg/dL (0-0.2)
[2021-01-20 21:24] LABS: Chol/HDL Ratio 2.23 %
[2021-01-20] MEDS ORDERED: MAGNESIUM HYDROXIDE (MOM) ORAL LIQD UDC PO PRN (22:10)
[2021-01-20] MEDS ORDERED: ONDANSETRON 4 MG/2 ML INJ IV PRN (22:10)
[2021-01-20] MEDS ORDERED: ACETAMINOPHEN 325 MG TAB PO PRN (22:10)
--- NOTE | 2021-01-20 22:23 | History and Physical Report ---
History of Present Illness Date of examination: 01/20/21 Date of admission: 01/20/2021 Chief complaint: Shortness of Breath Chest Congestion History of present illness: 65-year-old male with known history of end-stage renal disease on hemodialysisMondays, Wednesdays and Fridays, asthma, congestive heart failure and history of CABG presents to the emergency room today complaining of shortness of breath and congestion. Patient also indicates that he has had some cough which is nonproductive and has also had low-grade fever at home. He denies any chest pain, no headache or dizziness, no nausea vomiting, no abdominal pain, no hematuria or dysuria. Patient denies any sick contacts and no recent travel. Denies any contact with anyone with COVID-19. Patient has received his full doses of COVID-19 vaccination. Upon arrival in the emergency room patient was found to be wheezing and in mild respiratory distress. He was found to be slightly hypoxic upon arrival. Patient had nebulizing treatments and IV steroids with significant improvement. Patient is being admitted for asthma exacerbation with associated hypoxia. Past History Past Medical History: dialysis, ESRD, hypertension, other (Asthma) Past Surgical History: CABG, Other (A-V Fistula placement,Aortic stent ,Mitral Valve replacement.) Social history: smoking (Former smoker), alcohol abuse Family history: no significant family history Medications and Allergies Allergies Allergy/AdvReac Type Severity Reaction Status Date / Time adhesive Allergy Itching Verified 06/17/19 12:08 Home Medications Medication Instructions Recorded Confirmed Last Taken Type Aspirin EC [Halfprin EC] 81 mg PO QDAY #30 tablet 12/30/14 08/03/19 08/03/19 Rx 81 mg Metoprolol [Lopressor TAB] 12.5 mg PO BID #60 tablet 12/30/14 08/03/19 Unknown Rx NIFEdipine XL [Procardia Xl] 60 mg PO Q12HR #60 tablet 12/30/14 08/03/19 08/03/19 Rx 60 mg Pantoprazole [Protonix TAB] 40 mg PO QDAY #30 tablet 12/30/14 08/03/19 08/02/19 Rx 40 mg oxyCODONE /ACETAMINOPHEN [Percocet 1 tab PO Q6HR PRN 08/03/19 08/03/19 07/30/19 History 5/325 mg] 1 tab Sevelamer Carbonate [Renvela] 1,600 mg PO AC 08/04/19 08/04/19 08/03/19 17:00 History Doxycycline Monohydrate 100 mg PO BID 10 Days #20 capsule 06/11/20 Unknown Rx [Doxycycline Monohydrate CAP] Mupirocin [Bactroban 2% OINT] 1 applic TP TID 10 Days #1 tube 06/11/20 Unknown Rx Silver Sulfadiazine [Silvadene] 1 gm TP BID 5 Days #1 cream..g. 06/11/20 Unknown Rx traMADoL [Ultram 50 MG tab] 50 mg PO Q6HR PRN #10 tablet 06/11/20 Unknown Rx Active Meds: Active Medications Acetaminophen (Acetaminophen 325 Mg Tab) 650 mg PO Q4H PRN PRN Reason: Pain MILD(1-3)/Fever >100.5/HERRMANN Albuterol/Ipratropium (Ipratropium/Albuterol Sulfate 3 Ml Ampul.Neb) 1 ampul IH Q6HRT LISA Heparin Sodium (Porcine) (Heparin 5,000 Unit/1 Ml Vial) 5,000 unit SUB-Q Q8HR LISA Levofloxacin/Dextrose (Levaquin 500mg/100ml) 500 mg in 100 mls @ 100 mls/hr IV Q24H LISA; Protocol Magnesium Hydroxide (Magnesium Hydroxide (Mom) Oral Liqd Udc) 30 ml PO Q4H PRN PRN Reason: Constipation Methylprednisolone Sodium Succinate (Methylprednisolone Sod Succinate 40 Mg/1 Ml Inj) 40 mg IV Q8HR LISA Morphine Sulfate (Morphine 2 Mg/1 Ml Inj) 2 mg IV Q4H PRN PRN Reason: Pain, Moderate (4-6) Ondansetron HCl (Ondansetron 4 Mg/2 Ml Inj) 4 mg IV Q8H PRN PRN Reason: Nausea And Vomiting Sodium Chloride (Sodium Chloride 0.9% 10 Ml Flush Syringe) 10 ml IV BID LISA Sodium Chloride (Sodium Chloride 0.9% 10 Ml Flush Syringe) 10 ml IV PRN PRN PRN Reason: LINE FLUSH Review of Systems Constitutional: fever, no chills Ears, nose, mouth and throat: no nasal congestion, no sore throat Cardiovascular: no chest pain, no palpitations Respiratory: cough, shortness of breath, wheezing Gastrointestinal: no abdominal pain, no nausea, no vomiting, no diarrhea Genitourinary Male: no dysuria, no hematuria, no flank pain, no nocturia Musculoskeletal: no neck pain, no low back pain Integumentary: no rash, no pruritis Neurological: no headaches, no confusion Psychiatric: no anxiety, no depression Endocrine: no polyphagia, no polydipsia, no polyuria, no nocturia Exam - Constitutional Vitals: Temp Pulse Resp BP Pulse Ox 98.9 F 80 18 134/88 94 01/20/21 19:56 01/20/21 20:36 01/20/21 20:36 01/20/21 19:56 01/20/21 19:56 General appearance: Present: no acute distress, well-nourished - EENT Eyes: Present: PERRL, EOM intact. Absent: scleral icterus ENT: hearing intact, clear oral mucosa, dentition normal - Neck Neck: Present: supple, normal ROM - Respiratory Respiratory effort: normal Respiratory: bilateral: wheezing - Cardiovascular Heart Sounds: Present: S1 & S2. Absent: gallop, systolic murmur, diastolic murmur, rub, click - Extremities Extremities: no ischemia, pulses intact, pulses symmetrical, No edema, Full ROM Peripheral Pulses: within normal limits - Abdominal General gastrointestinal: Present: soft, non-tender, non-distended, normal bowel sounds. Absent: mass - Integumentary Integumentary: Present: clear, warm, dry. Absent: rash - Musculoskeletal Musculoskeletal: strength equal bilaterally - Psychiatric Psychiatric: appropriate mood/affect, intact judgment & insight, memory intact, cooperative - Neurologic Neurologic: CNII-XII intact, no focal deficits, moves all extremities HEART Score - HEART Score Troponin: Troponin T 0.145 ng/mL (0.00-0.029) H* 01/20/21 19:56 Results - Labs CBC & Chem 7: 01/20/21 19:17 01/20/21 19:17 Labs: Abnormal lab results 01/20/21 01/20/21 01/20/21 Range/Units 19:17 19:17 19:56 RBC 3.10 L (3.65-5.03) M/mm3 Hgb 9.5 L (11.8-15.2) gm/dl Hct 29.5 L (35.5-45.6) % MCV 95 H (84-94) fl RDW 18.9 H (13.2-15.2) % PT 16.3 H (12.2-14.9) Sec. INR 1.33 H (0.87-1.13) Sodium 136 L (137-145) mmol/L Chloride 93.5 L (98-107) mmol/L BUN 59 H (9-20) mg/dL Creatinine 9.3 H (0.8-1.3) mg/dL Direct Bilirubin (0-0.2) mg/dL Troponin T (0.00-0.029) ng/mL HDL Cholesterol (40-59) mg/dL 01/20/21 Range/Units 19:56 RBC (3.65-5.03) M/mm3 Hgb (11.8-15.2) gm/dl Hct (35.5-45.6) % MCV (84-94) fl RDW (13.2-15.2) % PT (12.2-14.9) Sec. INR (0.87-1.13) Sodium (137-145) mmol/L Chloride (98-107) mmol/L BUN (9-20) mg/dL Creatinine (0.8-1.3) mg/dL Direct Bilirubin 0.5 H (0-0.2) mg/dL Troponin T 0.145 H* (0.00-0.029) ng/mL HDL Cholesterol 60 H (40-59) mg/dL Assessment and Plan - Patient Problems (1) Asthma exacerbation Current Visit: Yes Status: Acute Plan to address problem: Patient placed on nebulizing treatments and IV steroid. He has also been placed on empiric IV antibiotics for possible underlying bronchitis. We will keep O2 saturation greater or equal to 94%. (2) Elevated troponin Current Visit: Yes Status: Acute Plan to address problem: Possibly secondary to the history of end-stage renal disease. Patient has denied any chest pain. We will monitor troponin levels. (3) ESRD on hemodialysis Current Visit: Yes Status: Chronic Plan to address problem: Patient gets dialysis on Friday, Wednesdays and Fridays. He has not missed his dialysis sessions. We will place consult to nephrology for evaluation and dialysis during this admission. (4) Anemia in end-stage renal disease Current Visit: No Status: Acute Plan to address problem: We will monitor CBC. (5) HTN (hypertension) Current Visit: No Status: Chronic Qualifiers: Hypertension type: essential hypertension Qualified Code(s): I10 - Essential (primary) hypertension Plan to address problem: We will resume patient's routine home medications and monitor vital signs closely. (6) DVT prophylaxis Current Visit: No Status: Acute Plan to address problem: Patient placed on subcutaneous heparin. (7) Full code status Current Visit: Yes Status: Acute Plan to address problem: Patient is a full code.
[2021-01-21] MEDS ORDERED: ALBUTEROL 2.5 MG/3 ML NEBU IH PRN (00:50)
[2021-01-21] MEDS: IPRATROPIUM/ALBUTEROL SULFATE 3 ML AMPUL.NEB IH SCH ×4 (06:13→20:10)
[2021-01-21] MEDS: HEPARIN 5,000 UNIT/1 ML VIAL SUB-Q SCH ×3 (06:24→21:56)
[2021-01-21] MEDS: methylPREDNISolone Sod Succinate 40 MG/1 ML INJ IV SCH ×3 (06:24→21:56)
[2021-01-21 06:51] LABS: Hematocrit 27.7 % (35.5-45.6); Mean Corpuscular HGB Conc 33 % (32-34); Mean Corpuscular Volume 96 fl (84-94); Platelet Count 145 K/mm3 (140-440); Red Blood Count 2.89 M/mm3 (3.65-5.03); Red Cell Distribution Width 18.4 % (13.2-15.2)
[2021-01-21 06:55] LABS: INR 1.42 (0.87-1.13)
[2021-01-21 07:28] LABS: Calcium 9.4 mg/dL (8.4-10.2)
[2021-01-21 09:06] LABS: Total Cells Counted 100
[2021-01-21 09:20] LABS: Ovalocytes Rare; Platelet Estimate Consistent w Auto
[2021-01-21] MEDS ORDERED: traMADol 50 MG TAB PO PRN (10:47)
--- NOTE | 2021-01-21 10:54 | Progress Note ---
Assessment and Plan Assessment and plan: Assessment and Plan - Patient Problems (1) Asthma exacerbation Current Visit: Yes Status: Acute Plan to address problem: Patient placed on nebulizing treatments and IV steroid. He has also been placed on empiric IV antibiotics for possible underlying bronchitis. We will keep O2 saturation greater or equal to 94%. (2) Elevated troponin Current Visit: Yes Status: Acute Plan to address problem: Possibly secondary to the history of end-stage renal disease. Patient has denied any chest pain. We will monitor troponin levels. (3) ESRD on hemodialysis Current Visit: Yes Status: Chronic Plan to address problem: Patient gets dialysis on Friday, Wednesdays and Fridays. He has not missed his dialysis sessions. We will place consult to nephrology for evaluation and dialysis during this admission. (4) Anemia in end-stage renal disease Current Visit: No Status: Acute Plan to address problem: We will monitor CBC. (5) HTN (hypertension) Current Visit: No Status: Chronic Qualifiers: Hypertension type: essential hypertension Qualified Code(s): I10 - Esse ntial (primary) hypertension Plan to address problem: We will resume patient's routine home medications and monitor vital signs closely. (6) DVT prophylaxis Current Visit: No Status: Acute Plan to address problem: Patient placed on subcutaneous heparin. (7) Full code status Current Visit: Yes Status: Acute Plan to address problem: Patient is a full code. 01/21/21 Patient is seen and examined. Patient feels better Patient has less shortness of breath and less coughing. No chest pain. We will continue the oxygen, neb treatment, antibiotic and a steroid. Patient elevated troponin most likely secondary to end-stage renal disease. Will do echocardiogram and consult cardiology Nephrology for evaluation for hemodialysis Continue current management We will continue the home medication. Chief complaint: Shortness of Breath Chest Congestion History of present illness: 65-year-old male with known history of end-stage renal disease on hemodialysisMondays, Wednesdays and Fridays, asthma, congestive heart failure and history of CABG presents to the emergency room today complaining of shortness of breath and congestion. Patient also indicates that he has had some cough which is nonproductive and has also had low-grade fever at home. He denies any chest pain, no headache or dizziness, no nausea vomiting, no abdominal pain, no hematuria or dysuria. Patient denies any sick contacts and no recent travel. Denies any contact with anyone with COVID-19. Patient has received his full doses of COVID-19 vaccination. Upon arrival in the emergency room patient was found to be wheezing and in mild respiratory distress. He was found to be slightly hypoxic upon arrival. Patient had nebulizing treatments and IV steroids with significant improvement. Patient is being admitted for asthma exacerbation with associated hypoxia. Past History Past Medical History: dialysis, ESRD, hypertension, other (Asthma) Past Surgical History: CABG, Other (A-V Fistula placement,Aortic stent ,Mitral Valve replacement.) Social history: smoking (Former smoker), alcohol abuse Family history: no significant family history History Interval history: Patient is seen and examined Patient chart and medications reviewed Patient is doing better. Shortness of breath is better and cough is better. No chest pain Vitals noted Hospitalist Physical - Constitutional Vitals: Temp Pulse Resp BP Pulse Ox 97 F L 80 18 176/84 97 01/21/21 08:34 01/21/21 09:35 01/21/21 05:27 01/21/21 07:31 01/21/21 07:31 General appearance: Present: no acute distress, well-nourished - EENT Eyes: Present: PERRL, EOM intact ENT: hearing intact, clear oral mucosa, dentition normal - Neck Neck: Present: supple, normal ROM - Respiratory Respiratory effort: normal Respiratory: bilateral: diminished - Cardiovascular Heart Sounds: Present: S1 & S2 - Extremities Extremities: no ischemia Peripheral Pulses: within normal limits - Abdominal General gastrointestinal: soft, non-tender, non-distended, normal bowel sounds - Integumentary Integumentary: Present: warm, dry - Psychiatric Psychiatric: appropriate mood/affect, intact judgment & insight - Neurologic Neurologic: CNII-XII intact, moves all extremities HEART Score - HEART Score Troponin: Troponin T 0.146 ng/mL (0.00-0.029) H* 01/20/21 21:52 Results - Labs CBC & Chem 7: 01/21/21 04:10 01/21/21 04:10 Labs: Laboratory Last Values WBC 7.2 K/mm3 (4.5-11.0) 01/21/21 04:10 RBC 2.89 M/mm3 (3.65-5.03) L 01/21/21 04:10 Hgb 9.0 gm/dl (11.8-15.2) L 01/21/21 04:10 Hct 27.7 % (35.5-45.6) L 01/21/21 04:10 MCV 96 fl (84-94) H 01/21/21 04:10 MCH 31 pg (28-32) 01/21/21 04:10 MCHC 33 % (32-34) 01/21/21 04:10 RDW 18.4 % (13.2-15.2) H 01/21/21 04:10 Plt Count 145 K/mm3 (140-440) 01/21/21 04:10 Add Manual Diff Complete 01/21/21 04:10 Total Counted 100 01/21/21 04:10 Seg Neutrophils % Green Chain Off Bearer 01/21/21 04:10 Seg Neuts % (Manual) 97.0 % (40.0-70.0) H 01/21/21 04:10 Lymphocytes % (Manual) 3.0 % (13.4-35.0) L 01/21/21 04:10 Nucleated RBC % Not Reportable 01/21/21 04:10 Seg Neutrophils # Man 7.0 K/mm3 (1.8-7.7) 01/21/21 04:10 Band Neutrophils # 0.0 K/mm3 01/21/21 04:10 Lymphocytes # (Manual) 0.2 K/mm3 (1.2-5.4) L 01/21/21 04:10 Abs React Lymphs (Man) 0.0 K/mm3 01/21/21 04:10 Monocytes # (Manual) 0.0 K/mm3 (0.0-0.8) 01/21/21 04:10 Eosinophils # (Manual) 0.0 K/mm3 (0.0-0.4) 01/21/21 04:10 Basophils # (Manual) 0.0 K/mm3 (0.0-0.1) 01/21/21 04:10 Metamyelocytes # 0.0 K/mm3 01/21/21 04:10 Myelocytes # 0.0 K/mm3 01/21/21 04:10 Promyelocytes # 0.0 K/mm3 01/21/21 04:10 Blast Cells # 0.0 K/mm3 01/21/21 04:10 WBC Morphology Not Reportable 01/21/21 04:10 Hypersegmented Neuts Not Reportable 01/21/21 04:10 Hyposegmented Neuts Not Reportable 01/21/21 04:10 Hypogranular Neuts Not Reportable 01/21/21 04:10 Smudge Cells Not Reportable 01/21/21 04:10 Toxic Granulation Not Reportable 01/21/21 04:10 Toxic Vacuolation Not Reportable 01/21/21 04:10 Dohle Bodies Not Reportable 01/21/21 04:10 Pelger-Huet Anomaly Not Reportable 01/21/21 04:10 Oumar Rods Not Reportable 01/21/21 04:10 Platelet Estimate Consistent w auto 01/21/21 04:10 Clumped Platelets Not Reportable 01/21/21 04:10 Plt Clumps, EDTA Not Reportable 01/21/21 04:10 Large Platelets Not Reportable 01/21/21 04:10 Giant Platelets Not Reportable 01/21/21 04:10 Platelet Satelliting Not Reportable 01/21/21 04:10 Plt Morphology Comment Not Reportable 01/21/21 04:10 RBC Morphology Not Reportable 01/21/21 04:10 Dimorphic RBCs Not Reportable 01/21/21 04:10 Polychromasia Not Reportable 01/21/21 04:10 Hypochromasia Not Reportable 01/21/21 04:10 Poikilocytosis Not Reportable 01/21/21 04:10 Anisocytosis Not Reportable 01/21/21 04:10 Microcytosis Not Reportable 01/21/21 04:10 Macrocytosis Not Reportable 01/21/21 04:10 Spherocytes Not Reportable 01/21/21 04:10 Pappenheimer Bodies Not Reportable 01/21/21 04:10 Sickle Cells Not Reportable 01/21/21 04:10 Target Cells Not Reportable 01/21/21 04:10 Tear Drop Cells Not Reportable 01/21/21 04:10 Ovalocytes Rare 01/21/21 04:10 Helmet Cells Not Reportable 01/21/21 04:10 [place] Bodies Not Reportable 01/21/21 04:10 [place] Rings Not Reportable 01/21/21 04:10 [place] Cells Not Reportable 01/21/21 04:10 Bite Cells Not Reportable 01/21/21 04:10 Crenated Cell Not Reportable 01/21/21 04:10 Elliptocytes Not Reportable 01/21/21 04:10 Acanthocytes (Spur) Not Reportable 01/21/21 04:10 Rouleaux Not Reportable 01/21/21 04:10 Hemoglobin C Crystals Not Reportable 01/21/21 04:10 Schistocytes Not Reportable 01/21/21 04:10 Malaria parasites Not Reportable 01/21/21 04:10 Shahriar Bodies Not Reportable 01/21/21 04:10 Hem Pathologist Commnt No 01/21/21 04:10 PT 17.2 Sec. (12.2-14.9) H 01/21/21 04:10 INR 1.42 (0.87-1.13) H 01/21/21 04:10 APTT 34.4 Sec. (24.2-36.6) 01/20/21 19:56 Sodium 136 mmol/L (137-145) L 01/21/21 04:10 Potassium 4.3 mmol/L (3.6-5.0) 01/21/21 04:10 Chloride 92.2 mmol/L (98-107) L 01/21/21 04:10 Carbon Dioxide 25 mmol/L (22-30) 01/21/21 04:10 Anion Gap 23 mmol/L 01/21/21 04:10 BUN 69 mg/dL (9-20) H 01/21/21 04:10 Creatinine 10.2 mg/dL (0.8-1.3) H 01/21/21 04:10 Estimated GFR 5 ml/min 01/21/21 04:10 BUN/Creatinine Ratio 7 % 01/21/21 04:10 Glucose 189 mg/dL (75-100) H 01/21/21 04:10 Calcium 9.4 mg/dL (8.4-10.2) 01/21/21 04:10 Total Bilirubin 1.20 mg/dL (0.1-1.2) 01/20/21 19:56 Direct Bilirubin 0.5 mg/dL (0-0.2) H 01/20/21 19:56 Indirect Bilirubin 0.7 mg/dL 01/20/21 19:56 AST 13 units/L (5-40) 01/20/21 19:56 ALT 11 units/L (7-56) 01/20/21 19:56 Alkaline Phosphatase 113 units/L (35-129) 01/20/21 19:56 Troponin T 0.146 ng/mL (0.00-0.029) H* 01/20/21 21:52 Total Protein 7.1 g/dL (6.3-8.2) 01/20/21 19:56 Albumin 4.5 g/dL (3.9-5) 01/20/21 19:56 Albumin/Globulin Ratio 1.7 % 01/20/21 19:56 Triglycerides 73 mg/dL (2-149) 01/20/21 19:56 Cholesterol 134 mg/dL (50-199) 01/20/21 19:56 LDL Cholesterol Direct 66 mg/dL (50-130) 01/20/21 19:56 HDL Cholesterol 60 mg/dL (40-59) H 01/20/21 19:56 Cholesterol/HDL Ratio 2.23 % 01/20/21 19:56 Active Medications - Current Medications Current Medications: Generic Name Dose Route Start Last Admin Trade Name Freq PRN Reason Stop Dose Admin Acetaminophen 650 mg 01/20/21 22:10 Acetaminophen 325 Mg Tab PO Q4H PRN Pain MILD(1-3)/Fever >100.5/HERRMANN Albuterol 2.5 mg 01/21/21 00:50 Albuterol 2.5 Mg/3 Ml Nebu IH Q4HRT PRN Shortness Of Breath Albuterol/Ipratropium 1 ampul 01/21/21 02:00 01/21/21 07:43 Ipratropium/Albuterol Sulfate 3 Ml Ampul.Neb IH 1 ampul Q6HRT LISA Administration Aspirin 81 mg 01/22/21 10:00 Aspirin Ec 81 Mg Tab PO QDAY LISA Heparin Sodium (Porcine) 5,000 unit 01/21/21 06:00 01/21/21 06:24 Heparin 5,000 Unit/1 Ml Vial SUB-Q 5,000 unit Q8HR LISA Administration Levofloxacin 500 mg 01/22/21 22:00 Levofloxacin 500 Mg Tab PO 01/28/21 22:01 Q48H LISA Protocol Magnesium Hydroxide 30 ml 01/20/21 22:10 Magnesium Hydroxide (Mom) Oral Liqd Udc PO Q4H PRN Constipation Methylprednisolone Sodium Succinate 40 mg 01/21/21 06:00 01/21/21 06:24 Methylprednisolone Sod Succinate 40 Mg/1 Ml Inj IV 40 mg Q8HR LISA Administration Metoprolol Tartrate 12.5 mg 01/21/21 22:00 Metoprolol Tartrate 25 Mg Tab PO BID [facility] Miscellaneous Medication 100 mg 01/21/21 22:00 Doxycycline Monohydrate [Doxycycline Monohydrate Cap] PO BID [facility] Morphine Sulfate 2 mg 01/20/21 22:10 Morphine 2 Mg/1 Ml Inj IV Q4H PRN Pain, Moderate (4-6) Mupirocin 1 applic 01/21/21 14:00 Mupirocin 2% Oint 22 Gm TP TID [facility] Nifedipine 60 mg 01/21/21 22:00 Nifedipine Xl 60 Mg Tab PO Q12HR [facility] Ondansetron HCl 4 mg 01/20/21 22:10 Ondansetron 4 Mg/2 Ml Inj IV Q8H PRN Nausea And Vomiting Oxycodone/Acetaminophen 1 tab 01/21/21 10:47 Oxycodone /Acetaminophen 5-325mg Tab PO Q6HR PRN PAIN Pantoprazole Sodium 40 mg 01/22/21 10:00 Pantoprazole 40 Mg Tab PO QDAY LISA Sevelamer Carbonate 1,600 mg 01/21/21 11:30 Sevelamer Carbonate 800 Mg Tab PO AC LISA Silver Sulfadiazine applic 01/21/21 22:00 Silver Sulfadiazine Cream 50 Gm TP BID [facility] Sodium Chloride 10 ml 01/21/21 10:00 Sodium Chloride 0.9% 10 Ml Flush Syringe IV BID [facility] Sodium Chloride 10 ml 01/20/21 22:10 Sodium Chloride 0.9% 10 Ml Flush Syringe IV PRN PRN LINE FLUSH Tramadol HCl 50 mg 01/21/21 10:47 Tramadol 50 Mg Tab PO Q6HR PRN PAIN Nutrition/Malnutrition Assess - Malnutrition Assessment Minimum of two criteria: No physical signs of malnutrition - Attestation Statement I have reviewed and agreed w/ Malnutrition eval & tx plan: Yes
[2021-01-21] MEDS: oxyCODONE /ACETAMINOPHEN 5-325MG TAB PO PRN ×3 (11:22→23:44)
[2021-01-21] MEDS: NIFEdipine XL 60 MG TAB PO SCH ×2 (12:09→21:57)
[2021-01-21] MEDS: METOPROLOL TARTRATE 25 MG TAB PO SCH ×2 (12:09→21:56)
[2021-01-21] MEDS: SEVELAMER CARBONATE 800 MG TAB PO SCH ×2 (12:12→16:44)
--- NOTE | 2021-01-21 13:36 | Consultation ---
History of Present Illness Consult date: 01/21/21 Requesting physician: CARLOS GARCIA Consult reason: elevated troponin History of present illness: Pt is a 65-year-old male with a past medical hx of ESRD on HD and asthma who presents with complaints of SOB, wheezing, and a non-productive cough x 1 day prior arrival. Pt also admits to chills. No fever. He reports some nausea as well, no vomiting. Cardiology has been consulted for eval of elevated cardiac enzymes. Pt has chronically elevated troponins in the setting of ESRD; however trop more elevated this admission than previous, though flat. ECG reveals SR, no acute ischemic changes. Pt denies chest pain. Pt is previously unknown to our practice. No prior cardiac workup available for review. Past History Past Medical History: dialysis, ESRD, hypertension, other (asthma, endocarditis) Past Surgical History: CABG, Other (MVR) Social history: smoking (former smoker), alcohol abuse Family history: no significant family history Medications and Allergies Allergies Allergy/AdvReac Type Severity Reaction Status Date / Time adhesive Allergy Itching Verified 06/17/19 12:08 Home Medications Medication Instructions Recorded Confirmed Last Taken Type Aspirin EC [Halfprin EC] 81 mg PO QDAY #30 tablet 12/30/14 01/21/21 01/20/21 Rx 0900 Metoprolol [Lopressor TAB] 12.5 mg PO BID #60 tablet 12/30/14 01/21/21 01/20/21 Rx 2100 NIFEdipine XL [Procardia Xl] 60 mg PO Q12HR #60 tablet 12/30/14 01/21/21 01/20/21 Rx 0900 Pantoprazole [Protonix TAB] 40 mg PO QDAY #30 tablet 12/30/14 01/21/21 01/20/21 Rx 0900 oxyCODONE /ACETAMINOPHEN [Percocet 1 tab PO Q6HR PRN 08/03/19 01/21/21 12/28/20 10:00 History 5/325 mg] Sevelamer Carbonate [Renvela] 1,600 mg PO AC 08/04/19 01/21/21 01/20/21 17:00 History Doxycycline Monohydrate 100 mg PO BID 10 Days #20 capsule 06/11/20 01/21/21 01/20/21 Rx [Doxycycline Monohydrate CAP] Mupirocin [Bactroban 2% OINT] 1 applic TP TID 10 Days #1 tube 06/11/20 01/21/21 Unknown Rx Silver Sulfadiazine [Silvadene] 1 gm TP BID 5 Days #1 cream..g. 06/11/20 01/21/21 Unknown Rx traMADoL [Ultram 50 MG tab] 50 mg PO Q6HR PRN #10 tablet 06/11/20 01/21/21 01/14/20 10:00 Rx Active Meds: Active Medications Acetaminophen (Acetaminophen 325 Mg Tab) 650 mg PO Q4H PRN PRN Reason: Pain MILD(1-3)/Fever >100.5/HERRMANN Albuterol (Albuterol 2.5 Mg/3 Ml Nebu) 2.5 mg IH Q4HRT PRN PRN Reason: Shortness Of Breath Albuterol/Ipratropium (Ipratropium/Albuterol Sulfate 3 Ml Ampul.Neb) 1 ampul IH Q6HRT [facility] Last Admin: 01/21/21 07:43 Dose: 1 ampul Documented by: Aspirin (Aspirin Ec 81 Mg Tab) 81 mg PO QDAY [facility] Heparin Sodium (Porcine) (Heparin 5,000 Unit/1 Ml Vial) 5,000 unit SUB-Q Q8HR [facility] Last Admin: 01/21/21 06:24 Dose: 5,000 unit Documented by: Levofloxacin (Levofloxacin 500 Mg Tab) 500 mg PO Q48H [facility]; Protocol Stop: 01/28/21 22:01 Magnesium Hydroxide (Magnesium Hydroxide (Mom) Oral Liqd Udc) 30 ml PO Q4H PRN PRN Reason: Constipation Methylprednisolone Sodium Succinate (Methylprednisolone Sod Succinate 40 Mg/1 Ml Inj) 40 mg IV Q8HR [facility] Last Admin: 01/21/21 06:24 Dose: 40 mg Documented by: Metoprolol Tartrate (Metoprolol Tartrate 25 Mg Tab) 12.5 mg PO BID [facility] Last Admin: 01/21/21 12:09 Dose: 12.5 mg Documented by: Morphine Sulfate (Morphine 2 Mg/1 Ml Inj) 2 mg IV Q4H PRN PRN Reason: Pain, Moderate (4-6) Nifedipine (Nifedipine Xl 60 Mg Tab) 60 mg PO Q12HR [facility] Last Admin: 01/21/21 12:09 Dose: 60 mg Documented by: Ondansetron HCl (Ondansetron 4 Mg/2 Ml Inj) 4 mg IV Q8H PRN PRN Reason: Nausea And Vomiting Oxycodone/Acetaminophen (Oxycodone /Acetaminophen 5-325mg Tab) 1 tab PO Q6H PRN PRN Reason: PAIN MODERATE Last Admin: 01/21/21 11:22 Dose: 1 tab Documented by: Pantoprazole Sodium (Pantoprazole 40 Mg Tab) 40 mg PO QDAY [facility] Sevelamer Carbonate (Sevelamer Carbonate 800 Mg Tab) 1,600 mg PO AC [facility] Last Admin: 01/21/21 12:12 Dose: 1,600 mg Documented by: Sodium Chloride (Sodium Chloride 0.9% 10 Ml Flush Syringe) 10 ml IV BID [facility] Last Admin: 01/21/21 11:14 Dose: 10 ml Documented by: Sodium Chloride (Sodium Chloride 0.9% 10 Ml Flush Syringe) 10 ml IV PRN PRN PRN Reason: LINE FLUSH Tramadol HCl (Tramadol 50 Mg Tab) 50 mg PO Q6H PRN PRN Reason: PAIN, MILD NOT RELEIVED BY TYL Review of Systems Constitutional: chills, no fever, no sweats Ears, nose, mouth and throat: no sore throat Cardiovascular: shortness of breath, no chest pain, no palpitations, no edema, no syncope, no lightheadedness Respiratory: cough, shortness of breath, wheezing Gastrointestinal: nausea, no abdominal pain, no vomiting, no diarrhea, no constipation Genitourinary Male: no dysuria, no flank pain Musculoskeletal: no neck stiffness, no neck pain Integumentary: no rash, no wounds Neurological: no head injury, no paralysis, no weakness, no parathesias, no numbness, no tingling, no seizures, no syncope, no vertigo, no headaches Endocrine: no cold intolerance, no heat intolerance, no polydipsia, no polyuria Hematologic/Lymphatic: no easy bruising, no easy bleeding Allergic/Immunologic: no anaphylaxis Physical Examination Last Vital Signs Temp 97 F L 01/21/21 08:34 Pulse 86 01/21/21 12:09 Resp 20 01/21/21 07:43 BP 188/90 01/21/21 12:09 Pulse Ox 97 01/21/21 07:43 General appearance: no acute distress HEENT: Positive: EOMI, Normocephaly, Mucus Membranes Moist Neck: Positive: neck supple, trachea midline Cardiac: Positive: Reg Rate and Rhythm, S1/S2 Lungs: Positive: Decreased Breath Sounds (bases), Wheezes Neuro: Positive: Grossly Intact Abdomen: Positive: Soft. Negative: Tender Skin: Negative: Rash Musculoskeletal: No Pain Extremities: Present: upper extr. pulses, lower extr. pulses. Absent: edema Results 01/21/21 04:10 01/21/21 04:10 Cardiac Enzymes 01/20/21 Range/Units 19:56 AST 13 (5-40) units/L Coagulation 01/20/21 01/21/21 Range/Units 19:56 04:10 PT 16.3 H 17.2 H (12.2-14.9) Sec. INR 1.33 H 1.42 H (0.87-1.13) APTT 34.4 (24.2-36.6) Sec. Lipids 01/20/21 Range/Units 19:56 Triglycerides 73 (2-149) mg/dL Cholesterol 134 (50-199) mg/dL HDL Cholesterol 60 H (40-59) mg/dL Cholesterol/HDL Ratio 2.23 % CBC 01/20/21 01/21/21 Range/Units 19:17 04:10 WBC 9.8 7.2 (4.5-11.0) K/mm3 RBC 3.10 L 2.89 L (3.65-5.03) M/mm3 Hgb 9.5 L 9.0 L (11.8-15.2) gm/dl Hct 29.5 L 27.7 L (35.5-45.6) % Plt Count 163 145 (140-440) K/mm3 Comprehensive Metabolic Panel 01/20/21 01/20/21 01/21/21 Range/Units 19:17 19:56 04:10 Sodium 136 L 136 L (137-145) mmol/L Potassium 4.3 4.3 (3.6-5.0) mmol/L Chloride 93.5 L 92.2 L (98-107) mmol/L Carbon Dioxide 25 25 (22-30) mmol/L BUN 59 H 69 H (9-20) mg/dL Creatinine 9.3 H 10.2 H (0.8-1.3) mg/dL Glucose 95 189 H (75-100) mg/dL Calcium 9.7 9.4 (8.4-10.2) mg/dL Direct Bilirubin 0.5 H (0-0.2) mg/dL Indirect Bilirubin 0.7 mg/dL AST 13 (5-40) units/L ALT 11 (7-56) units/L Alkaline Phosphatase 113 (35-129) units/L Total Protein 7.1 (6.3-8.2) g/dL Albumin 4.5 (3.9-5) g/dL - Imaging and Cardiology Echo: pending EKG: report reviewed, image reviewed - EKG Interpretation EKG: no acute changes EKG interpretations - EKG Sinus rhythms and dysrhythmias: sinus rhythm Assessment and Plan CE elevation appears to be consistent with NSTEMI Type 2 in the setting of ESRD on HD/volume overload and accelerated HTN. Continue to trend cardiac enzymes. Will optimize antihypertensive regimen. Obtain echo. Pt seen in conjunction with Dr. Holland, who agrees with the assessment and plan of care. - Patient Problems (1) Acute and chronic respiratory failure Current Visit: Yes Status: Acute (2) Asthma Current Visit: Yes Status: Acute (3) End-stage renal disease needing dialysis Current Visit: Yes Status: Acute (4) NSTEMI (non-ST elevated myocardial infarction) Current Visit: Yes Status: Acute Plan to address problem: Type 2 (5) Accelerated hypertension Current Visit: Yes Status: Acute (6) S/P mitral valve replacement Current Visit: Yes Status: Chronic (7) H/O bacterial endocarditis Current Visit: Yes Status: Acute (8) Hx of CABG Current Visit: Yes Status: Suspected Plan to address problem: ?per pt report
[2021-01-21] MEDS ORDERED: MUPIROCIN 2% OINT 22 GM TP SCH (14:00)
--- NOTE | 2021-01-21 14:51 | Consultation ---
History of Present Illness - Reason for Consult Consult date: 01/21/21 end stage renal disease - History of Present Illness This is a 65 year-old man with ESRD who presents for dyspnea. Patient usually dialyzes MWF at [facility]. Last HD 01/21, UF 2.4L removed with post weight of 65.7 (EDW 65.5). Denies any recent issues with HD, including dizziness, lightheadedness, cramping, chest pain on HD. Currently, patient denies any issues including edema, access issues, nausea, vomiting, headaches. Notes dyspnea is about the same as admission Past History Past Medical History: dialysis, ESRD, hypertension, other (asthma, endocarditis) Past Surgical History: CABG, Other (MVR) Social history: smoking (former smoker), alcohol abuse Family history: no significant family history Medications and Allergies Allergies Allergy/AdvReac Type Severity Reaction Status Date / Time adhesive Allergy Itching Verified 06/17/19 12:08 Home Medications Medication Instructions Recorded Confirmed Last Taken Type Aspirin EC [Halfprin EC] 81 mg PO QDAY #30 tablet 12/30/14 01/21/21 01/20/21 Rx 0900 Metoprolol [Lopressor TAB] 12.5 mg PO BID #60 tablet 12/30/14 01/21/21 01/20/21 Rx 2100 NIFEdipine XL [Procardia Xl] 60 mg PO Q12HR #60 tablet 12/30/14 01/21/21 01/20/21 Rx 0900 Pantoprazole [Protonix TAB] 40 mg PO QDAY #30 tablet 12/30/14 01/21/21 01/20/21 Rx 0900 oxyCODONE /ACETAMINOPHEN [Percocet 1 tab PO Q6HR PRN 08/03/19 01/21/21 12/28/20 10:00 History 5/325 mg] Sevelamer Carbonate [Renvela] 1,600 mg PO AC 08/04/19 01/21/21 01/20/21 17:00 History Doxycycline Monohydrate 100 mg PO BID 10 Days #20 capsule 06/11/20 01/21/21 01/20/21 Rx [Doxycycline Monohydrate CAP] Mupirocin [Bactroban 2% OINT] 1 applic TP TID 10 Days #1 tube 06/11/20 01/21/21 Unknown Rx Silver Sulfadiazine [Silvadene] 1 gm TP BID 5 Days #1 cream..g. 06/11/20 01/21/21 Unknown Rx traMADoL [Ultram 50 MG tab] 50 mg PO Q6HR PRN #10 tablet 06/11/20 01/21/21 01/14/20 10:00 Rx Active Meds: Active Medications Acetaminophen (Acetaminophen 325 Mg Tab) 650 mg PO Q4H PRN PRN Reason: Pain MILD(1-3)/Fever >100.5/HERRMANN Albuterol (Albuterol 2.5 Mg/3 Ml Nebu) 2.5 mg IH Q4HRT PRN PRN Reason: Shortness Of Breath Albuterol/Ipratropium (Ipratropium/Albuterol Sulfate 3 Ml Ampul.Neb) 1 ampul IH Q6HRT [facility] Last Admin: 01/21/21 13:46 Dose: Not Given Documented by: Aspirin (Aspirin Ec 81 Mg Tab) 81 mg PO QDAY [facility] Heparin Sodium (Porcine) (Heparin 5,000 Unit/1 Ml Vial) 5,000 unit SUB-Q Q8HR [facility] Last Admin: 01/21/21 14:23 Dose: 5,000 unit Documented by: Levofloxacin (Levofloxacin 500 Mg Tab) 500 mg PO Q48H [facility]; Protocol Stop: 01/28/21 22:01 Magnesium Hydroxide (Magnesium Hydroxide (Mom) Oral Liqd Udc) 30 ml PO Q4H PRN PRN Reason: Constipation Methylprednisolone Sodium Succinate (Methylprednisolone Sod Succinate 40 Mg/1 Ml Inj) 40 mg IV Q8HR [facility] Last Admin: 01/21/21 14:23 Dose: 40 mg Documented by: Metoprolol Tartrate (Metoprolol Tartrate 25 Mg Tab) 12.5 mg PO BID [facility] Last Admin: 01/21/21 12:09 Dose: 12.5 mg Documented by: Morphine Sulfate (Morphine 2 Mg/1 Ml Inj) 2 mg IV Q4H PRN PRN Reason: Pain, Moderate (4-6) Nifedipine (Nifedipine Xl 60 Mg Tab) 60 mg PO Q12HR [facility] Last Admin: 01/21/21 12:09 Dose: 60 mg Documented by: Ondansetron HCl (Ondansetron 4 Mg/2 Ml Inj) 4 mg IV Q8H PRN PRN Reason: Nausea And Vomiting Oxycodone/Acetaminophen (Oxycodone /Acetaminophen 5-325mg Tab) 1 tab PO Q6H PRN PRN Reason: PAIN MODERATE Last Admin: 01/21/21 11:22 Dose: 1 tab Documented by: Pantoprazole Sodium (Pantoprazole 40 Mg Tab) 40 mg PO QDAY [facility] Sevelamer Carbonate (Sevelamer Carbonate 800 Mg Tab) 1,600 mg PO AC [facility] Last Admin: 01/21/21 12:12 Dose: 1,600 mg Documented by: Sodium Chloride (Sodium Chloride 0.9% 10 Ml Flush Syringe) 10 ml IV BID [facility] Last Admin: 01/21/21 11:14 Dose: 10 ml Documented by: Sodium Chloride (Sodium Chloride 0.9% 10 Ml Flush Syringe) 10 ml IV PRN PRN PRN Reason: LINE FLUSH Tramadol HCl (Tramadol 50 Mg Tab) 50 mg PO Q6H PRN PRN Reason: PAIN, MILD NOT RELEIVED BY TYL Review of Systems All systems: negative (as per HPI- dyspnea noted) Exam - Vital Signs Vital signs: Vital Signs Temp Pulse Resp BP Pulse Ox 99.7 F H 88 15 190/83 92 01/20/21 18:36 01/20/21 18:36 01/20/21 18:36 01/20/21 18:36 01/20/21 18:36 - Physical Exam Narrative exam: Constitutional: no acute distress Head: NC/AT Neck: supple Lungs: clear to auscultation, on NC CV: RRR, no M/R/G Abdomen: soft, non-tender, bowel sounds present Back: nontender Extremities: no edema, pulses WNL Skin: intact Neuro: no focal deficits, alert and oriented x4 Results - Lab Results 01/21/21 04:10 01/21/21 04:10 Most recent lab results Calcium 9.4 mg/dL (8.4-10.2) 01/21/21 04:10 Assessment and Plan This is a 65 year old man who presents with dyspnea # ESRD: plan for HD tomorrow per MWF schedule, no indication for emergent HD today per labs/volume assessment - daily labs - renally dose meds - avoid nephrotoxins - renal diet # Anemia: last hemoglobin 9.0, continue ESAs with HD # HTN: UF as tolerated. BP high, did not get home meds for a while per patient # Secondary Hyperparathyroidism: continue home binders as needed # Dyspnea: likely multifactorial, mild pulmonary edema noted on CXR but do not suspect only etiology
[2021-01-21 16:57] LABS: Calcium 9.3 mg/dL (8.4-10.2)
[2021-01-21] MEDS ORDERED: GABAPENTIN 300 MG CAP PO SCH (18:00)
[2021-01-21] MEDS ORDERED: SODIUM CHLORIDE 0.9% 100 ML IV PRN (20:30)
[2021-01-21] MEDS ORDERED: EPOETIN ALFA-EPBX 10,000 UNIT/1 ML VIAL IV PRN (20:31)
[2021-01-21] MEDS ORDERED: DOXYCYCLINE MONOHYDRATE 100 MG PO SCH (22:00)
[2021-01-22] MEDS: HEPARIN 5,000 UNIT/1 ML VIAL SUB-Q SCH ×2 (05:43→15:11)
[2021-01-22] MEDS: methylPREDNISolone Sod Succinate 40 MG/1 ML INJ IV SCH ×2 (05:43→15:10)
[2021-01-22] MEDS: oxyCODONE /ACETAMINOPHEN 5-325MG TAB PO PRN (05:43)
[2021-01-22] MEDS: SEVELAMER CARBONATE 800 MG TAB PO SCH ×2 (08:20→15:11)
[2021-01-22] MEDS: IPRATROPIUM/ALBUTEROL SULFATE 3 ML AMPUL.NEB IH SCH ×2 (09:09→15:10)
[2021-01-22] MEDS: METOPROLOL TARTRATE 25 MG TAB PO SCH (09:31)
[2021-01-22] MEDS: NIFEdipine XL 60 MG TAB PO SCH (09:31)
[2021-01-22] MEDS ORDERED: ASPIRIN EC 81 MG TAB PO SCH (10:00)
[2021-01-22] MEDS: MORPHINE 2 MG/1 ML INJ IV PRN ×2 (10:00→13:40)
[2021-01-22] MEDS ORDERED: PANTOPRAZOLE 40 MG TAB PO SCH (10:00)
--- NOTE | 2021-01-22 11:12 | Electrocardiograph Report ---
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
--- NOTE | 2021-01-22 11:15 | Discharge Summary ---
Providers - Providers Date of Admission: 01/20/21 21:51 Date of discharge: 01/22/21 Attending physician: CARLOS GARCIA MD 01/21/21 10:55 Consult to Physician [CONS] Routine Comment: Consulting Provider: ARNOLDO DONATO Physician Instructions: Reason For Exam: Elevated troponin 01/21/21 12:05 Consult to Physician [CONS] Routine Comment: Consulting Provider: CARMINA BELLO Physician Instructions: Reason For Exam: ESRD ON DIALYSIS Primary care physician: SHIRLEY COOK Hospitalization Reason for admission: Acute asthma exacerbation. End-stage renal disease on hemodialysis. [place] Condition: Stable Hospital course: Chief complaint: Shortness of Breath Chest Congestion History of present illness: 65-year-old male with known history of end-stage renal disease on hemodialysisMondays, Wednesdays and Fridays, asthma, congestive heart failure and history of CABG presents to the emergency room today complaining of shortness of breath and congestion. Patient also indicates that he has had some cough which is nonproductive and has also had low-grade fever at home. He denies any chest pain, no headache or dizziness, no nausea vomiting, no abdominal pain, no hematuria or dysuria. Patient denies any sick contacts and no recent travel. Denies any contact with anyone with COVID-19. Patient has received his full doses of COVID-19 vaccination. Upon arrival in the emergency room patient was found to be wheezing and in mild respiratory distress. He was found to be slightly hypoxic upon arrival. Patient had nebulizing treatments and IV steroids with significant improvement. Patient is being admitted for asthma exacerbation with associated hypoxia. Past History Past Medical History: dialysis, ESRD, hypertension, other (Asthma) Past Surgical History: CABG, Other (A-V Fistula placement,Aortic stent ,Mitral Valve replacement.) Social history: smoking (Former smoker), alcohol abuse Family history: no significant family history Assessment and Plan Assessment and plan: Assessment and Plan - Patient Problems (1) Asthma exacerbation Current Visit: Yes Status: Acute Plan to address problem: Patient placed on nebulizing treatments and IV steroid. He has also been placed on empiric IV antibiotics for possible underlying bronchitis. We will keep O2 saturation greater or equal to 94%. (2) Elevated troponin Current Visit: Yes Status: Acute Plan to address problem: Possibly secondary to the history of end-stage renal disease. Patient has denied any chest pain. We will monitor troponin levels. (3) ESRD on hemodialysis Current Visit: Yes Status: Chronic Plan to address problem: Patient gets dialysis on Friday, Wednesdays and Fridays. He has not missed his dialysis sessions. We will place consult to nephrology for evaluation and dialysis during this admission. (4) Anemia in end-stage renal disease Current Visit: No Status: Acute Plan to address problem: We will monitor CBC. (5) HTN (hypertension) Current Visit: No Status: Chronic Qualifiers: Hypertension type: essential hypertension Qualified Code(s): I10 - Essential (primary) hypertension Plan to address problem: We will resume patient's routine home medications and monitor vital signs closely. (6) DVT prophylaxis Current Visit: No Status: Acute Plan to address problem: Patient placed on subcutaneous heparin. (7) Full code status Current Visit: Yes Status: Acute Plan to address problem: Patient is a full code. 01/21/21 Patient is seen and examined. Patient feels better Patient has less shortness of breath and less coughing. No chest pain. We will continue the oxygen, neb treatment, antibiotic and a steroid. Patient elevated troponin most likely secondary to end-stage renal disease. Will do echocardiogram and consult cardiology Nephrology for evaluation for hemodialysis Continue current management We will continue the home medication. 01/22/21 Patient is seen and examined Patient is doing better. No shortness of breath no chest pain. No coughing Patient is seen and evaluated by cardiology.Patient elevated troponin most likely secondary to end-stage renal disease. Patient will have dialysis today as per nephrology. Discharge plan to home with medication after hemodialysis. Patient will follow up with primary care, cardiology and nephrology as outpatient in 1 week Patient will continue hemodialysis Disposition: DC-01 TO HOME OR SELFCARE Final Discharge Diagnosis (Prints w/discharge instructions): Acute asthma exacerbation. Improved. End-stage renal disease on hemodialysis. Elevated troponin Time spent for discharge: 35 Core Measure Documentation - Palliative Care Palliative Care/ Comfort Measures: Not Applicable - Core Measures Any of the following diagnoses?: none Exam - Constitutional Vitals: Temp Pulse Resp BP Pulse Ox 97.9 F 76 18 101/65 94 01/22/21 09:55 01/22/21 11:00 01/22/21 09:55 01/22/21 11:00 01/22/21 07:21 General appearance: Present: no acute distress, well-nourished - EENT Eyes: Present: PERRL ENT: hearing intact, clear oral mucosa - Neck Neck: Present: supple, normal ROM - Respiratory Respiratory effort: normal Respiratory: bilateral: diminished - Cardiovascular Heart Sounds: Present: S1 & S2. Absent: rub, click - Extremities Extremities: pulses symmetrical, No edema Peripheral Pulses: within normal limits - Abdominal General gastrointestinal: Present: soft, non-tender, non-distended, normal bowel sounds Male genitourinary: Present: normal - Integumentary Integumentary: Present: clear, warm, dry - Musculoskeletal Musculoskeletal: gait normal, strength equal bilaterally - Psychiatric Psychiatric: appropriate mood/affect, intact judgment & insight - Neurologic Neurologic: CNII-XII intact, moves all extremities - Allied Health Allied health notes reviewed: nursing Plan Diet: low fat, low cholesterol, low salt, renal, other Follow up with: SHIRLEY COOK MD [Primary Care Provider] - 3-5 Days Prescriptions: Gabapentin 300 mg PO QPM 30 Days capsule Ipratropium/Albuterol Sulfate [DUONEB *Not for PRN Use*] 1 ampul IH TIDRT 30 Days ampul.neb
[2021-01-22 11:18] LABS: Hepatitis B Surface Antigen Non-Reactive (Negative); Hepatitis C Virus Antibody Reactive (NonReactive)
[2021-01-22 14:00] VITALS: BP 119/67
--- NOTE | 2021-01-22 15:53 | Progress Note ---
Assessment and Plan * NSTEMI suspect type II * Patient is currently chest pain-free and denies any shortness of breath. * 12-lead reviewed no ST segment elevation. Troponins are elevated and trending downward. CE elevation appears to be consistent with NSTEMI Type 2 in the setting of ESRD on HD/volume overload and accelerated HTN. * Echocardiogram reviewed (01/21/2021): LV EF is greater than 55%. LV SF is normal. Mild concentric LVH. LV DF is abnormal. RV SF is normal. Left atrium is severely dilated. Right atrium is mildly dilated. No evidence for ASD. Mild aortic regurg. Mild mitral regurg. Bioprosthetic mitral valve is present and appears normal. Moderate TR. Mild SD. * Ischemic evaluation is recommended. Patient is being discharged per his request. Recommend outpatient follow-up for ischemic eval. * Hypertension * Continue current antihypertensive regimen of metoprolol 25 mg twice daily, nifedipine XL 60 mg daily. * ESRD on HD * Nephrology is following. * s/p mitral valve replacement with history of bacterial endocarditis * Echo reviewed, prosthetic functioning normally * DVT prophylaxis * Heparin SQ Patient is being discharged per patient request. 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 Pt seen in conjunction with Dr. Ginny Kee, who agrees with the assessment and plan of care. - Patient Problems (1) Acute and chronic respiratory failure Current Visit: Yes Status: Acute (2) Asthma Current Visit: Yes Status: Acute (3) End-stage renal disease needing dialysis Current Visit: Yes Status: Acute (4) NSTEMI (non-ST elevated myocardial infarction) Current Visit: Yes Status: Acute Plan to address problem: (5) Accelerated hypertension Current Visit: Yes Status: Acute (6) S/P mitral valve replacement Current Visit: Yes Status: Chronic (7) H/O bacterial endocarditis Current Visit: Yes Status: Acute (8) Hx of CABG Current Visit: Yes Status: Suspected Plan to address problem: Subjective Date of service: 01/22/21 Principal diagnosis: Difficulty Breathing Interval history: Patient resting comfortably in bed. No shortness of breath or chest pain over. Telemetry reviewed: Sinus rhythm 77. No events Objective Last Vital Signs Temp 97.9 F 01/22/21 13:35 Pulse 81 01/22/21 13:35 Resp 20 01/22/21 13:35 BP 119/67 01/22/21 13:35 Pulse Ox 94 01/22/21 07:21 - Physical Examination General: No Apparent Distress HEENT: Positive: EOMI, Normocephaly, Mucus Membranes Moist Neck: Positive: neck supple, trachea midline Cardiac: Positive: Reg Rate and Rhythm, S1/S2 Lungs: Positive: Normal Exam Neuro: Positive: Grossly Intact Abdomen: Positive: Soft. Negative: Tender Skin: Negative: Rash Musculoskeletal: No Pain Extremities: Present: upper extr. pulses, lower extr. pulses. Absent: edema - Labs and Meds Comprehensive Metabolic Panel 01/21/21 Range/Units 15:57 Sodium 136 L (137-145) mmol/L Potassium 5.1 H (3.6-5.0) mmol/L Chloride 91.0 L (98-107) mmol/L Carbon Dioxide 26 (22-30) mmol/L BUN 77 H (9-20) mg/dL Creatinine 11.0 H (0.8-1.3) mg/dL Glucose 148 H (75-100) mg/dL Calcium 9.3 (8.4-10.2) mg/dL - Imaging and Cardiology EKG: report reviewed, image reviewed Echo: report reviewed (Echocardiogram reviewed (01/21/2021): LV EF is greater than 55%. LV SF is normal. Mild concentric LVH. LV DF is abnormal. RV SF is normal. Left atrium is severely dilated. Right atrium is mildly dilated. No evidence for ASD. Mild aortic regurg. Mild mitral regurg. Bioprosthetic mitral valve ) - EKG Sinus rhythms and dysrhythmias: sinus rhythm
--- NOTE | 2021-01-22 16:25 | Progress Note ---
Assessment and Plan This is a 65 year old man who presents with dyspnea # ESRD: plan for HD today per [facility] schedule - daily labs - renally dose meds - avoid nephrotoxins - renal diet # Anemia: continue ESAs with HD # HTN: UF as tolerated. Continue antihypertensives. # Secondary Hyperparathyroidism: continue home binders as needed # Dyspnea: Improved this morning. Not requiring oxygen. No fever. No consolidation on CXR. UF as tolerated with HD Subjective Date of service: 01/22/21 Principal diagnosis: Difficulty Breathing Objective - Vital Signs Vital signs: Vital Signs - 12hr 01/22/21 01/22/21 01/22/21 04:43 07:21 09:00 Temperature 97.3 F L 97.6 F Pulse Rate 71 78 70 Respiratory 16 18 Rate Blood Pressure 163/80 161/78 O2 Sat by Pulse 99 94 Oximetry 01/22/21 01/22/21 01/22/21 09:31 09:55 10:00 Temperature 97.9 F Pulse Rate 78 72 67 Respiratory 18 Rate Blood Pressure 161/78 98/40 94/51 O2 Sat by Pulse Oximetry 01/22/21 01/22/21 01/22/21 10:15 10:30 10:45 Temperature Pulse Rate 72 76 78 Respiratory Rate Blood Pressure 127/55 117/43 117/58 O2 Sat by Pulse Oximetry 01/22/21 01/22/21 01/22/21 11:00 11:15 11:30 Temperature Pulse Rate 76 79 77 Respiratory Rate Blood Pressure 101/65 112/64 101/51 O2 Sat by Pulse Oximetry 01/22/21 01/22/21 01/22/21 11:45 12:00 12:15 Temperature Pulse Rate 75 79 76 Respiratory Rate Blood Pressure 110/54 123/64 124/55 O2 Sat by Pulse Oximetry 01/22/21 01/22/21 01/22/21 12:30 12:45 13:00 Temperature Pulse Rate 76 78 96 H Respiratory Rate Blood Pressure 107/40 112/54 133/74 O2 Sat by Pulse Oximetry 01/22/21 01/22/21 01/22/21 13:15 13:30 13:35 Temperature 97.9 F Pulse Rate 75 74 81 Respiratory 20 Rate Blood Pressure 102/57 96/63 119/67 O2 Sat by Pulse Oximetry - Lab 01/21/21 04:10 01/21/21 15:57 Most recent lab results Calcium 9.3 mg/dL (8.4-10.2) 01/21/21 15:57 Medications & Allergies - Medications Allergies/Adverse Reactions: Allergies adhesive Allergy (Verified 06/17/19 12:08) Itching Home Medications: Home Medications Medication Instructions Recorded Confirmed Last Taken Type Aspirin EC [Halfprin EC] 81 mg PO QDAY #30 tablet 12/30/14 01/21/21 01/20/21 Rx 0900 Metoprolol [Lopressor TAB] 12.5 mg PO BID #60 tablet 12/30/14 01/21/21 01/20/21 Rx 2100 NIFEdipine XL [Procardia Xl] 60 mg PO Q12HR #60 tablet 12/30/14 01/21/21 01/20/21 Rx 0900 Pantoprazole [Protonix TAB] 40 mg PO QDAY #30 tablet 12/30/14 01/21/21 01/20/21 Rx 0900 oxyCODONE /ACETAMINOPHEN [Percocet 1 tab PO Q6HR PRN 08/03/19 01/21/21 12/28/20 10:00 History 5/325 mg] Sevelamer Carbonate [Renvela] 1,600 mg PO AC 08/04/19 01/21/21 01/20/21 17:00 History Doxycycline Monohydrate 100 mg PO BID 10 Days #20 capsule 06/11/20 01/21/21 01/20/21 Rx [Doxycycline Monohydrate CAP] Mupirocin [Bactroban 2% OINT] 1 applic TP TID 10 Days #1 tube 06/11/20 01/21/21 Unknown Rx Silver Sulfadiazine [Silvadene] 1 gm TP BID 5 Days #1 cream..g. 06/11/20 01/21/21 Unknown Rx Epoetin Viet-Epbx 10,000 Unit 10,000 unit IV LADONNA PRN vial 01/22/21 Unknown Rx [Retacrit] Gabapentin 300 mg PO QPM 30 Days capsule 01/22/21 Unknown Rx Ipratropium/Albuterol Sulfate 1 ampul IH TIDRT 30 Days ampul.neb 01/22/21 Unknown Rx [DUONEB *Not for PRN Use*] predniSONE [Deltasone] 20 mg PO QDAY 7 Days tab 01/22/21 Unknown Rx
[2021-01-22] MEDS ORDERED: levoFLOXacin 500 MG TAB PO SCH (22:00)
== END 2021-01-22 15:16 | disposition home or self-care (01) ==
LOC: ED 18:31 → 4A 21:51 → INTOOBSV 21:51 → 4A 22:19
PROVIDERS: ADMIT Internal Medicine Geriatric Medicine; ATTEND Hospitalist
DX: J96.20 Acute and chronic respiratory failure, unspecified whether with hypoxia or hypercapnia (principal); J45.901 Unspecified asthma with (acute) exacerbation; I21.4 Non-ST elevation (NSTEMI) myocardial infarction; I13.2 Hypertensive heart and chronic kidney disease with heart failure and with stage 5 chronic kidney disease, or end stage renal disease; I50.9 Heart failure, unspecified; N18.6 End stage renal disease; D63.1 Anemia in chronic kidney disease; N25.81 Secondary hyperparathyroidism of renal origin; R77.8 Other specified abnormalities of plasma proteins; Z95.1 Presence of aortocoronary bypass graft; Z98.890 Other specified postprocedural states; Z99.2 Dependence on renal dialysis; Z87.891 Personal history of nicotine dependence; Z79.82 Long term (current) use of aspirin; Z79.899 Other long term (current) drug therapy
CPT/HCPCS: 36415; 71046; 80048; 80061; 80074; 80076; 84484; 85025; 85027; 85610; 85730; 93005; 93306; 94640; 94644; 96365; 96372; 96375; 96376; 99285; G0257; G0378; J0885; J1644; J1956; J2270; J2405; J2920; J2930; 85007